=== PATIENT | female | born 1985 | race Caucasian/White ===

== ENCOUNTER 2020-08-31 08:21 | Emergency (ER) | payer OTHER, SELFPAY ==
[2020-08-31 08:22] VITALS: BP 131/81; PULSE 111; RESP 18; TEMP 36.7; O2SAT 99; BMI 43.2
--- NOTE | 2020-08-31 08:46 | ED_ITS ---
HPI - General Adult General Chief complaint: General Medical Stated complaint: vomiting,diarrhea Time Seen by Provider: 08/31/20 08:41 Source: patient Mode of arrival: ambulatory Limitations: no limitations History of Present Illness HPI narrative: 35-year-old female who is status post gastric band surgery 2011 at [facility], patient presented with episodes of nausea, vomiting, diarrhea, abdominal pain, patient stated ever since the surgery patient get episode of the above symptoms very frequently patient stated that today's symptoms similar to the previous episodes. Patient stated that symptoms started with since last night has been constant, nothing made symptoms worse or better, patient declined any recent travel, no recent use of antibiotics, no sick contact exposure. No history of eating that food. As mentioned above patient had several episodes of the above symptoms after having surgery in 2011. Related Data Allergies Allergy/AdvReac Type Severity Reaction Status Date / Time No Known Allergies Allergy Verified 08/31/20 08:26 [No Known Allergies*] pt states no food/medication Allergy Unknown Unknown Uncoded 08/31/20 08:26 a Review of Systems Review of Systems: All other systems are reviewed and are negative Constitutional: Reports as per HPI and Reports no additional constitutional complaints Eyes: Reports as per HPI and Reports no additional eye complaints Reports system reviewed and no additional complaints, except as documented Cardiovascular: Reports as per HPI and Reports no additional cardiovascular complaints Respiratory: Reports as per HPI and Reports no additional respiratory complaints Gastrointestinal: Reports as per HPI and Reports no additional gastrointestinal complaints Genitourinary: Reports no additional female genitourinary complaints Musculoskeletal: Reports no additional musculoskeletal complaints Skin/Breast: Reports system reviewed and no additional complaints, except as docu Psychiatric: Reports no additional psychiatric complaints Endocrine: Reports no additional endocrine complaints Hematologic/Lymphatic: Reports no additional hematologic/lymphatic complaints Allergic/Immunologic: Reports no additional allergic/immunologic complaints Reports system reviewed and no additional complaints, except as documented and Reports Abnormal speech present [facility] Past Medical History Surgical History Hx of laparoscopic gastric banding LAP-BAND surgery status Social History Social History Alcohol intake: never Smoking Status: Never smoker Use of substances other than those prescribed or required for medical reasons: No Advance Directives: Yes Advance Directives Information Provided: Yes Advance Directives on File: No Physical Exam Vital Signs: Vital Signs: Last Vital Signs Temp 98.1 F 08/31/20 08:22 Pulse 80 08/31/20 10:29 Resp 18 08/31/20 10:27 BP 122/71 08/31/20 10:29 Pulse Ox 99 08/31/20 08:22 Body Mass Index 43.2 Vital signs have been reviewed as appeared to be correct. Blood pressure normal. Tachycardia. Respiration rate normal. Temperature normal. Oxygen saturation normal. Appearance: Alert. Oriented X3. No acute distress. Head: Normal external exam. Normocephalic. Atraumatic. No Hinojosa signs noted. No raccoon eyes noted Eyes: PERRLA. EOMI. Conjunctiva and sclera normal. Eyelids normal. ENT: TM's Normal. Pharynx normal. Uvula midline. Moist mucous membranes. No trismus noted. No drooling noted. No muffled voice noted. Neck: Normal inspection. Neck supple. FROM. No adenopathy. Thyroid Normal. No meningeal signs. No neck mass noted. CVS: Normal heart rate and rhythm. Heart sound normal. No murmurs noted. Pulses normal throughout. Respiratory: No respiratory distress. Painless inspiration. Breath sounds normal. No wheezes/rales/rhonchi noted. Chest nontender. No accessory muscle usage noted or decreased air movement noted. Abdomen: Soft and nontender. Bowel sounds normal in all 4 quadrants. No distention noted. No organomegaly noted. No visible injury noted. Back: No CVA tenderness. Full range of motion noted. Skin: Skin warm and dry. Normal skin color. Normal skin turgor. No rashes/lesions/lacerations noted. Extremities: No lower extremity edema. Extremities exhibit normal range of motion. Extremities nontender. Neuro: Oriented X 3. No motor deficit. No sensory deficit. Reflexes normal. Course Course Course Narrative: Assessment and plan. 35-year-old femal status post gastric band surgery 8 years ago, patient gets epi sodes of abdominal pain, nausea, vomiting, diarrhea every now and then. Patient presented today with her typical symptoms and received IV hydration with Zofran patient now feels better able to tolerate p.o. intake. Repeat abdominal exam showed no tenderness, patient had mild leukocytosis. But abdominal exam has improved. Medical Decision Making Lab Data Lab results reviewed: Yes I reviewed the patient's lab results. Result diagrams: 08/31/20 08:57 08/31/20 08:57 Labs: Lab Results 08/31/20 08/31/20 08/31/20 Range/Units 08:57 08:57 08:57 WBC 12.5 H (4.8-10.8) X10*3/uL RBC 5.23 (4.20-5.50) X10*6/uL Hgb 14.1 (12.0-16.0) g/dl Hct 44.2 (37-47) % MCV 84.5 (80-98) fL MCH 27.0 (27.0-33.0) pg MCHC 31.9 (31.0-35.0) g/dl RDW 13.6 (11.0-16.0) % Plt Count 265 (160-400) X10*3/uL MPV 10.7 (9.4-12.3) fL Immature Gran % (Auto) 0.4 (0.0-0.4) % Neut % (Auto) 76.9 H (45-73) % Lymph % (Auto) 18.3 L (20-40) % [place] % (Auto) 3.4 (2-11) % Eos % (Auto) 0.8 (0-4) % Baso % (Auto) 0.2 (0-2) % Lymph # (Auto) 2.3 (1.2-4.9) X10*3/uL [place] # (Auto) 0.4 (0.1-1.2) X10*3/uL Eos # (Auto) 0.1 (0.0-0.4) X10*3/uL Baso # (Auto) 0.0 (0.0-0.2) X10*3/uL Abs Immat Gran (auto) 0.05 H (0.00-0.03) X10*3/uL Absolute Neuts (auto) 9.6 H (2.0-8.3) X10*3/uL Absolute Nucleated RBC 0.000 (0.0-0.012) X10*3/uL Nucleated RBC % (auto) 0.0 (0.0-0.2) /100WBC Sodium 137 (135-145) mmol/L Potassium 4.7 (3.3-5.1) mmol/L Chloride 106 (96-108) mmol/L Carbon Dioxide 18 L (22-29) mmol/L Anion Gap 18 (12-20) BUN 12 (9-16) mg/dL Creatinine 0.76 (0.5-1.4) mg/dL Estim Creat Clear Calc 131.4 Estimated GFR > 60 Random Glucose 199 H (60-115) mg/dL Calcium 9.0 (8.4-10.2) mg/dL Total Bilirubin 0.6 (0.0-1.0) mg/dL Direct Bilirubin 0.2 (0.0-0.5) mg/dL AST 12 (5-31) U/L ALT 15 (0-31) U/L Alkaline Phosphatase 82 (39-117) U/L Total Protein 7.8 (6.5-8.0) g/dL Albumin 4.2 (3.5-5.0) g/dL Lipase 34 (8-78) U/L Urine Color YELLOW Urine Appearance CLEAR Urine pH 5.5 (5.0-8.0) Ur Specific [place] >= 1.030 H (1.005-1.025) Urine Protein TRACE (NEG-TRACE) MG/DL Urine Glucose (UA) NEG (NEG) MG/DL Urine Ketones NEG (NEG) MG/DL Urine Blood NEG (NEG) Urine Nitrite NEG (NEG) Ur Leukocyte Esterase NEG (NEG) Urine Test (NEGATIVE) 08/31/20 Range/Units 08:57 WBC (4.8-10.8) X10*3/uL RBC (4.20-5.50) X10*6/uL Hgb (12.0-16.0) g/dl Hct (37-47) % MCV (80-98) fL MCH (27.0-33.0) pg MCHC (31.0-35.0) g/dl RDW (11.0-16.0) % Plt Count (160-400) X10*3/uL MPV (9.4-12.3) fL Immature Gran % (Auto) (0.0-0.4) % Neut % (Auto) (45-73) % Lymph % (Auto) (20-40) % [place] % (Auto) (2-11) % Eos % (Auto) (0-4) % Baso % (Auto) (0-2) % Lymph # (Auto) (1.2-4.9) X10*3/uL [place] # (Auto) (0.1-1.2) X10*3/uL Eos # (Auto) (0.0-0.4) X10*3/uL Baso # (Auto) (0.0-0.2) X10*3/uL Abs Immat Gran (auto) (0.00-0.03) X10*3/uL Absolute Neuts (auto) (2.0-8.3) X10*3/uL Absolute Nucleated RBC (0.0-0.012) X10*3/uL Nucleated RBC % (auto) (0.0-0.2) /100WBC Sodium (135-145) mmol/L Potassium (3.3-5.1) mmol/L Chloride (96-108) mmol/L Carbon Dioxide (22-29) mmol/L Anion Gap (12-20) BUN (9-16) mg/dL Creatinine (0.5-1.4) mg/dL Estim Creat Clear Calc Estimated GFR Random Glucose (60-115) mg/dL Calcium (8.4-10.2) mg/dL Total Bilirubin (0.0-1.0) mg/dL Direct Bilirubin (0.0-0.5) mg/dL AST (5-31) U/L ALT (0-31) U/L Alkaline Phosphatase (39-117) U/L Total Protein (6.5-8.0) g/dL Albumin (3.5-5.0) g/dL Lipase (8-78) U/L Urine Color Urine Appearance Urine pH (5.0-8.0) Ur Specific [place] (1.005-1.025) Urine Protein (NEG-TRACE) MG/DL Urine Glucose (UA) (NEG) MG/DL Urine Ketones (NEG) MG/DL Urine Blood (NEG) Urine Nitrite (NEG) Ur Leukocyte Esterase (NEG) Urine Test NEGATIVE (NEGATIVE) Discharge Plan Discharge Clinical Impression: Vomiting Abdominal pain Qualifiers: Abdominal location: generalized Qualified Code(s): R10.84 - Generalized abdominal pain Patient Disposition: Home, Self-Care Instructions: Abdominal Pain (ED) Referrals: Raquel Shukla NP [Primary Care Provider] - 2 days
[2020-08-31 09:02] LABS: MANUAL DIFF FLAG NO
[2020-08-31 09:06] LABS: Basophils Percent Auto 0.2 % (0-2); Eosinophils Absolute Auto 0.1 X10*3/uL (0.0-0.4); Eosinophils Percent Auto 0.8 % (0-4); Hematocrit 44.2 % (37-47); Hemoglobin 14.1 g/dl (12.0-16.0); Imm Gran Abs Auto 0.05 X10*3/uL (0.00-0.03); Imm Gran Pct Auto 0.4 % (0.0-0.4); Lymphocytes Absolute Auto 2.3 X10*3/uL (1.2-4.9); Lymphocytes Percent Auto 18.3 % (20-40); Mean Corpuscular HGB Conc 31.9 g/dl (31.0-35.0); Mean Corpuscular Volume 84.5 fL (80-98); Mean Platelet Volume 10.7 fL (9.4-12.3); Monocytes Absolute Auto 0.4 X10*3/uL (0.1-1.2); Monocytes Percent Auto 3.4 % (2-11); Neutrophils Absolute Auto 9.6 X10*3/uL (2.0-8.3); Neutrophils Percent Auto 76.9 % (45-73); Platelet Count 265 X10*3/uL (160-400); Red Blood Count 5.23 X10*6/uL (4.20-5.50); Red Cell Distribution Width 13.6 % (11.0-16.0); White Blood Count 12.5 X10*3/uL (4.8-10.8)
[2020-08-31] MEDS: 0.9 % Sodium Chloride 1,000 ML 999 ML IVCONT (09:07)
[2020-08-31] MEDS: ondansetron HCL 4 MG/2 ML VIAL IVPUSH (09:07)
[2020-08-31 09:15] LABS: Glucose Urine UA NEG (NEG); Leukocyte Esterase Urine NEG (NEG); Nitrite Urine NEG (NEG); PH 5.5 (5.0-8.0); Specific Gravity - Urine >= 1.030 (1.005-1.025); Urine Blood NEG (NEG); Urine Ketones NEG (NEG); Urine Protein TRACE MG/DL (NEG-TRACE)
[2020-08-31 09:16] LABS: Appearance Urine CLEAR; Color Urine YELLOW
[2020-08-31 09:17] LABS: UPreg QC Valid YES; Urine Pregnancy NEGATIVE (NEGATIVE)
[2020-08-31 09:35] LABS: Alanine Aminotransferase 15 U/L (0-31); Albumin Level 4.2 g/dL (3.5-5.0); Alkaline Phosphatase 82 U/L (39-117); Anion Gap 18 (12-20); Aspartate Amino Transferase 12 U/L (5-31); Bilirubin Direct 0.2 mg/dL (0.0-0.5); Bilirubin Total 0.6 mg/dL (0.0-1.0); Blood Urea Nitrogen 12 mg/dL (9-16); Carbon Dioxide 18 mmol/L (22-29); Chloride 106 mmol/L (96-108); Creatinine Clr Calc Pharmacy 131.4; Estimated Glomerular Filt Rate > 60; Glucose Random 199 mg/dL (60-115); Lipase 34 U/L (8-78); Potassium 4.7 mmol/L (3.3-5.1); Sodium 137 mmol/L (135-145); Total Protein 7.8 g/dL (6.5-8.0)
[2020-08-31 10:27] VITALS: BP 110/69; PULSE 68; RESP 18
[2020-08-31 10:28] VITALS: BP 110/69; PULSE 69
[2020-08-31 10:29] VITALS: BP 111/69; BP 122/71; PULSE 72; PULSE 80
--- NOTE | 2020-08-31 11:21 | PC.NURSE ---
pt sts feeling better att, vss. given po challenge, tolerating. wctm for dcc needs.
== END 2020-08-31 11:31 | disposition home or self-care (01) ==
PROVIDERS: Emergency Provider Emergency Medicine; PCP Nurse Practitioner
DX: R11.10 Vomiting, unspecified (principal); R10.84 Generalized abdominal pain; Z98.84 Bariatric surgery status
CPT/HCPCS: 36415; 80048; 80076; 81003; 81025; 83690; 85025; 96361; 96374; 99284; J2405

== ENCOUNTER → 2020-09-25 08:13 | Outpatient (BNVA) | payer OTHER, SELFPAY | PROVIDERS: PCP Nurse Practitioner; Visit Provider Physician Assistant ==

== ENCOUNTER → 2020-10-07 08:10 | Outpatient (BNVA) | payer OTHER, SELFPAY | PROVIDERS: PCP Nurse Practitioner; Visit Provider Surgery ==

== ENCOUNTER 2020-10-09 08:11 | Outpatient (REF) | payer OTHER, SELFPAY ==
--- NOTE | ~2020-10-09 | XR_ITS ---
EXAMINATION: XR CHEST CLINICAL INFORMATION: Morbid obesity COMPARISON: February 22, 2020 and July 12, 2017 TECHNIQUE: 2 views of the chest were obtained. FINDINGS: No significant abnormality is noted involving the heart, lungs, mediastinum, bony thorax or soft tissues. XR/XR chest 2V IMPRESSION: No acute disease.
--- NOTE | 2020-10-09 08:18 | ECG_ITS ---
Test Reason : MORBID OBESITY Blood Pressure : / mmHG Vent. Rate : 093 BPM Atrial Rate : 093 BPM P-R Int : 114 ms QRS Dur : 080 ms QT Int : 382 ms P-R-T Axes : 031 028 024 degrees QTc Int : 474 ms Normal sinus rhythm Normal ECG When compared to the previous EKG of No significant changes seen Referred By: Diego Coleman Electronically Signed By:Arcadio Villar
[2020-10-09 09:12] LABS: MANUAL DIFF FLAG NO
[2020-10-09 09:19] LABS: Basophils Percent Auto 0.5 % (0-2); Eosinophils Absolute Auto 0.1 X10*3/uL (0.0-0.4); Eosinophils Percent Auto 1.1 % (0-4); Hematocrit 39.5 % (37-47); Hemoglobin 12.6 g/dl (12.0-16.0); Imm Gran Abs Auto 0.03 X10*3/uL (0.00-0.03); Imm Gran Pct Auto 0.4 % (0.0-0.4); Lymphocytes Absolute Auto 2.9 X10*3/uL (1.2-4.9); Lymphocytes Percent Auto 36.5 % (20-40); Mean Corpuscular HGB Conc 31.9 g/dl (31.0-35.0); Mean Corpuscular Hemoglobin 26.8 pg (27.0-33.0); Mean Corpuscular Volume 83.9 fL (80-98); Monocytes Absolute Auto 0.3 X10*3/uL (0.1-1.2); Monocytes Percent Auto 3.8 % (2-11); Neutrophils Absolute Auto 4.5 X10*3/uL (2.0-8.3); Neutrophils Percent Auto 57.7 % (45-73); Platelet Count 219 X10*3/uL (160-400); Red Blood Count 4.71 X10*6/uL (4.20-5.50); Red Cell Distribution Width 13.9 % (11.0-16.0); White Blood Count 7.8 X10*3/uL (4.8-10.8)
[2020-10-09 09:40] LABS: Alanine Aminotransferase 22 U/L (0-31); Albumin Level 3.9 g/dL (3.5-5.0); Alkaline Phosphatase 77 U/L (39-117); Anion Gap 14 (12-20); Aspartate Amino Transferase 18 U/L (5-31); Bilirubin Total 0.6 mg/dL (0.0-1.0); Blood Urea Nitrogen 9 mg/dL (9-16); C Reactive Protein 1.02 mg/dL (< or = 0.50); Calcium 9.2 mg/dL (8.4-10.2); Carbon Dioxide 24 mmol/L (22-29); Chloride 104 mmol/L (96-108); Cholesterol 160 mg/dL; Estimated Glomerular Filt Rate > 60; Glucose Random 234 mg/dL (60-115); HDL Cholesterol 35 mg/dL; LDL Cholesterol Calculated 52 mg/dl; Potassium 4.5 mmol/L (3.3-5.1); Sodium 137 mmol/L (135-145); Total Protein 7.2 g/dL (6.5-8.0); Triglycerides 369 mg/dL
[2020-10-09 10:02] LABS: Ferritin 119 ng/mL (10-122); TSH reflex Free T4 1.83 uIU/mL (0.32-4.0); Vitamin D 25-OH Total 27.3 ng/mL (>30)
[2020-10-09 10:51] LABS: Estimated Average Glucose 177 mg/dL; Hemoglobin A1c % 7.8 %
[2020-10-09 11:33] LABS: Folate 4.2 ng/mL (> or = 4.0); Vitamin B12 468 pg/mL (200-900)
[2020-10-10 09:52] LABS: Insulin Level Total 16.7 uIU/mL
[2020-10-10 12:36] LABS: H Pylori Breath Test NOT DETECTED (NOT DETECTED)
[2020-10-13 00:32] LABS: Zinc 76 mcg/dL (60-130)
[2020-10-13 11:37] LABS: PTHI 60 pg/mL (14-64)
[2020-10-13 22:02] LABS: Vitamin A 56 mcg/dL (38-98)
[2020-10-15 07:26] LABS: Vitamin B1 7 nmol/L (8-30)
== END 2020-10-09 08:12 | disposition home or self-care (01) ==
LOC: HO.LAB 08:11
PROVIDERS: Physician Assistant; PCP Nurse Practitioner; Visit Provider Surgery
DX: Z01.812 Encounter for preprocedural laboratory examination (principal); E66.01 Morbid (severe) obesity due to excess calories; K21.9 Gastro-esophageal reflux disease without esophagitis; R11.2 Nausea with vomiting, unspecified
CPT/HCPCS: 36415; 71046; 80053; 80061; 82306; 82607; 82728; 82746; 83013; 83036; 83525; 83970; 84425; 84443; 84590; 84630; 85025; 86140; 93005; 99211

== ENCOUNTER → 2020-10-15 13:51 | Day surgery (SDC) | payer OTHER, SELFPAY ==
--- NOTE | 2020-10-14 20:57 | MHC.SHP ---
Pre-Procedural Eval Section A The patient is an INPATIENT: No The History & Physical has been completed within 30 days and I have reviewed it.: No Section B Chief Complaint: N/V Details of Present Illness: GERD Relevant Family History (Specify if Yes): No Relevant Social History: None Present Medications: see Short Stay Collaborative assessment Medical History: No relevant PMH History of Previous Operations: Relevant previous surgery/procedure and date(s) (Lap band) Allergies: Allergies Allergy/AdvReac Type Severity Reaction Status Date / Time pt states no food/medication Allergy Unknown Unknown Uncoded 10/07/20 13:39 a Review of Systems Sugical H&P ROS: Negative: Constitution, Cardiovascular, Respiratory, Neurological, Psychiatric, Hem-Onc, Allergic/Immunologic, Genitourinary, Musculoskeletal, Integumentary, Endocrine and Eyes/Ears/Nose/Throat and Yes, Specify: Gastrointestinal (GERD, vomiting) Exam Surgical H&P Exam: Normal: HEENT, Normal: Heart, Normal: Lungs, Normal: Extremities, Normal: Abdomen, Normal: Skin and Normal: Neurological Plan Diagnosis/Plan: Unchanged (EGD to asess cause of GERD and vomiting and rule out band slippage and erosion) I have reviewed the history and physical and performed a pertinent physical examination on my patient. No changes have occurred unless specified.
--- NOTE | 2020-10-15 10:08 | PM.OP ---
Brief Operative Note Date of Service: 10/15/20 Pre-op diagnosis: Nausea, vomiting and GERD, s/p lap band Post-op diagnosis: same Procedure: DATE: 11/05/2019 PREOPERATIVE DIAGNOSIS: GERD, s/p lap band POSTOPERATIVE DIAGNOSIS: Same as above. Esophagitis grade II PROCEDURE: Vuvwtuvi-kpmchl-ojkfjzdeosng with biopsies Surgeon: Mikie Coleman M.D.. Ph.D. Film Vault Supervisor: None Anesthesia: IV sedation Estimated blood loss: Minimal FINDINGS AND PROCEDURE: OPERATIVE INDICATIONS: The patient is a 35 year old female known to me who underwent a laparoscopic gastric band elsewhere. The patient had poor weight loss so far and has been complaining of GERD. Based on this information I recommended an upper endoscopy to evaluate the patient's symptoms. Risks and complications of the surgery were discussed with the patient in advance particularly the possibility of perforation or bleeding that may require surgical intervention. The patient understood the risks and was in agreement with the plan. PROCEDURE: After informed consent was obtained by the patient, the patient was transferred to the Operating Room and was placed in the supine position. After successful induction of IV sedation, a mouth block was inserted and the patient was placed in the left lateral decubitus position. An upper endoscopy was performed next, the oropharynx and esophagus appeared within the normal limits. There was no hiatal hernia. The z-line was irregular with tongues of gastric mucosa protruding to the esophagus in a 25-50% of circumference. The stomach was entered and it appeared to be of normal size. There was no band erosion, gastritis and no ulcer. The scope was advanced into the duodenum which appeared to be normal as well. Retroflexion was performed and again no band erosion was seen. At that point the duodenum and the stomach were decompressed and the scope was withdrawn from the patient's mouth. The patient was awaken and was transferred in stable condition to the Recovery Room for further care. I was present and performed all steps of the procedure. There were no residents to assist with this case. Please send a copy of the operative report to Dr. Pawel Logan. Mikie Coleman M.D., Ph.D. Surgeon: Diego Coleman MD Estimated blood loss (mL): 0 IV fluids (mL): 400 Urine output (mL): 0 (No Frias to record) Pathology: other (1) GEJ x2, distal esophagus x2, stomach x1) Condition: stable Disposition: PACU
[2020-10-15 14:03] VITALS: BMI 43.2
[2020-10-15 14:04] VITALS: BP 131/73; PULSE 91; RESP 18; TEMP 36.4; O2SAT 98
[2020-10-15 14:11] LABS: UPreg QC Valid YES
[2020-10-15 14:13] LABS: Glucose, Whole Blood 150 mg/dL (60-115)
[2020-10-15 14:13] LABS: Urine Pregnancy NEGATIVE (NEGATIVE)
--- NOTE | 2020-10-15 14:24 | PC.NURSE ---
PATIENT ADMITTED TO HAVING AN [facility]MON[facility] AT APPROX [address] ARRINGTON NOTIFIED AND SHE NOTIFIED THE SURGEON. PROCEDURE CANCELLED FOR TODAY,. PT TO RESCHEDULE. PACU AND OR DESK NOTIFIED.
[2020-10-15 14:26] LABS: COVID-19 Test Negative (Negative); IDNOW Serial# 9DD0AD1C
== END ==
PROVIDERS: Anesthesiology; PCP Nurse Practitioner; Visit Provider Surgery
DX: R11.2 Nausea with vomiting, unspecified (principal); Z53.8 Procedure and treatment not carried out for other reasons; K21.9 Gastro-esophageal reflux disease without esophagitis; E11.9 Type 2 diabetes mellitus without complications; Z79.84 Long term (current) use of oral hypoglycemic drugs; Z20.822 Contact with and (suspected) exposure to COVID-19; Z98.84 Bariatric surgery status
CPT/HCPCS: 36415; 81025; 82947; 87635

== ENCOUNTER 2020-10-22 08:08 | Day surgery (SDC) | payer OTHER, SELFPAY ==
--- NOTE | 2020-10-21 09:46 | HO.ANESPROP2 ---
Documented by User: Shreya Malini 10/21/20 09:48 HPI - Anesthesia Eval Consult details Narrative: 35yo F for EGD h/o lap band PMFSH Active Problems Active Problems: All Active Problems (Updated 10/16/20 @ 10:35 by Krissy Velazco [facility]) Adjustment disorder, unspecified (Acute) DJD (degenerative joint disease) (Acute) Back pain (Acute) Knee pain (Acute) Nausea and vomiting (Acute) GERD (gastroesophageal reflux disease) (Acute) Non-insulin dependent diabetes mellitus (Acute) Morbid obesity (Acute) Past Medical History Medical History (Updated 10/22/20 @ 10:56 by Bailey Álvarez) Back pain DJD (degenerative joint disease) GERD (gastroesophageal reflux disease) Knee pain Morbid obesity Nausea and vomiting Non-insulin dependent diabetes mellitus Family History Family History Mother No problems noted. Father No problems noted. Brother No problems noted. Sister No problems noted. Son No problems noted. Son No problems noted. Daughter No problems noted. Surgical History Surgical History Hx of laparoscopic gastric banding LAP-BAND surgery status Social History Social History Alcohol intake: never Smoking Status: Never smoker Use of substances other than those prescribed or required for medical reasons: No Are you DNR?: No Advance Directives: No Advance Directives Information Provided: Yes Meds Allergies Allergy/AdvReac Type Severity Reaction Status Date / Time pt states no food/medication Allergy Unknown Unknown Uncoded 10/22/20 08:56 a Home Medications Medication Instructions Recorded Confirmed Last Taken Type cholecalciferol (vitamin D3) 10 10 mcg PO DAILY 10/07/20 10/07/20 Unknown History mcg (400 unit) capsule etonogestrel 0.12 mg-ethinyl 1 vag ring VAGINAL Q4W 10/07/20 10/07/20 Unknown History estradiol 0.015 mg/24 hr vaginal ring liraglutide 0.6 mg/0.1 mL (18 mg/3 0.6 mg SUBCUT DAILY 10/07/20 10/07/20 Unknown History mL) subcutaneous pen injector metformin 500 mg tablet 500 mg PO DAILY 10/07/20 10/07/20 Unknown History omeprazole 40 mg capsule,delayed 40 mg PO DAILY 10/07/20 10/07/20 Unknown History release Exam Exam Date and Time: October 21, 2020 0946 Narrative Narrative: EKG 09/2020 Vent. Rate : 093 BPM Atrial Rate : 093 BPM P-R Int : 114 ms QRS Dur : 080 ms QT Int : 382 ms P-R-T Axes : 031 028 024 degrees QTc Int : 474 ms Normal sinus rhythm Normal ECG When compared to the previous EKG of No significant changes seen Assessment and Plan Assessment Anesthesia Assessment: Chart Reviewed Documented by User: Bailey Álvarez 10/22/20 10:58 PMFSH Past Medical History Medical History (Updated 10/22/20 @ 10:56 by Bailey Álvarez) Back pain DJD (degenerative joint disease) GERD (gastroesophageal reflux disease) Knee pain Morbid obesity Nausea and vomiting Non-insulin dependent diabetes mellitus Family History Family History Mother No problems noted. Father No problems noted. Brother No problems noted. Sister No problems noted. Son No problems noted. Son No problems noted. Daughter No problems noted. Family history of problems with anesthesia: No Surgical History Surgical History Hx of laparoscopic gastric banding LAP-BAND surgery status History of Problems with Anesthesia: No Social History Social History Alcohol intake: never Smoking Status: Never smoker Use of substances other than those prescribed or required for medical reasons: No Are you DNR?: No Advance Directives: No Advance Directives Information Provided: Yes Meds Allergies Allergy/AdvReac Type Severity Reaction Status Date / Time pt states no food/medication Allergy Unknown Unknown Uncoded 10/22/20 08:56 a Home Medications Medication Instructions Recorded Confirmed Last Taken Type cholecalciferol (vitamin D3) 10 10 mcg PO DAILY 10/07/20 10/07/20 Unknown History mcg (400 unit) capsule etonogestrel 0.12 mg-ethinyl 1 vag ring VAGINAL Q4W 10/07/20 10/07/20 Unknown History estradiol 0.015 mg/24 hr vaginal ring liraglutide 0.6 mg/0.1 mL (18 mg/3 0.6 mg SUBCUT DAILY 10/07/20 10/07/20 Unknown History mL) subcutaneous pen injector metformin 500 mg tablet 500 mg PO DAILY 10/07/20 10/07/20 Unknown History omeprazole 40 mg capsule,delayed 40 mg PO DAILY 10/07/20 10/07/20 Unknown History release Exam Height,Weight and Vital Signs: Vital Signs Temp Pulse Resp BP Pulse Ox 10/22/20 09:18 97.8 F 85 16 128/74 97 Pertinent Lab Results Pertinent Lab Results: Lab Results 10/22/20 10/22/20 10/22/20 Range/Units 08:49 08:50 09:35 POC Glucose 226 H (60-115) mg/dL Urine Test NEGATIVE (NEGATIVE) COVID-19 (JARED) Negative (Negative) COVID-19 Clin Com See Note Airway Mallampati Class: II TM Dist: >3cm Neck ROM: Full Heart: RRR Lungs: CTAB Assessment and Plan Assessment Anesthesia Assessment: Anesthesia Plan Discussed and Chart Reviewed Final Anesthetic Review NPO: Yes ASA Class: III Final Preanesthetic Review: No Changes in Pt Med Stat, Meds/Allgs Chart Reviewed, Consent Obtained/Reviewed and Anes Risks/Benef Reviewed Patient Risk: Intermediate Procedure Risk: Low Assessment/Block/Sedation in SS: Assess/Block/Sedation-SS Anesthetic Plan Anesthetic Plan: MAC: Disposition: Standard PACU
--- NOTE | 2020-10-21 20:39 | MHC.SHP ---
Pre-Procedural Eval Section A The patient is an INPATIENT: No The History & Physical has been completed within 30 days and I have reviewed it.: No Section B Chief Complaint: reflux disease Details of Present Illness: nausea and vomiting Relevant Family History (Specify if Yes): No Relevant Social History: None Present Medications: see Short Stay Collaborative assessment Medical History: No relevant PMH History of Previous Operations: Relevant previous surgery/procedure and date(s) (lap band) Allergies: Allergies Allergy/AdvReac Type Severity Reaction Status Date / Time pt states no food/medication Allergy Unknown Unknown Uncoded 10/07/20 13:39 a Review of Systems Sugical H&P ROS: Negative: Constitution, Cardiovascular, Respiratory, Neurological, Psychiatric, Hem-Onc, Allergic/Immunologic, Gastrointestinal, Genitourinary, Musculoskeletal, Integumentary, Endocrine and Eyes/Ears/Nose/Throat Exam Surgical H&P Exam: Normal: HEENT, Normal: Heart, Normal: Lungs, Normal: Extremities, Normal: Abdomen, Normal: Skin and Normal: Neurological Plan Diagnosis/Plan: Unchanged (EGD to assess cause of vomiting and rule out erosion and band slippage) I have reviewed the history and physical and performed a pertinent physical examination on my patient. No changes have occurred unless specified.
[2020-10-22 08:58] VITALS: BMI 43.2
[2020-10-22 09:18] VITALS: BP 128/74; PULSE 85; RESP 16; TEMP 36.6; O2SAT 97
[2020-10-22 09:19] LABS: UPreg QC Valid YES; Urine Pregnancy NEGATIVE (NEGATIVE)
[2020-10-22 09:32] LABS: COVID-19 Test Negative (Negative); IDNOW Serial# 9DD0AD1C
[2020-10-22] MEDS: Lactated Ringers 1,000 ML 80 ML IVCONT (09:37)
[2020-10-22 09:41] LABS: Glucose, Whole Blood 226 mg/dL (60-115)
--- NOTE | 2020-10-22 11:46 | PM.OP ---
Brief Operative Note Date of Service: 10/22/20 Pre-op diagnosis: GERD and vomiting Post-op diagnosis: same (esophagitis grade II, small diaphragmatic hernia) Procedure: DATE: 10/22/2020 PREOPERATIVE DIAGNOSIS: GERD, s/p lap band POSTOPERATIVE DIAGNOSIS: Same as above. Esophagitis grade II and a small diaphragmatic hernia PROCEDURE: Ciwcclow-ezkhqw-lafsymjfjuby with biopsies Surgeon: Mikie Coleman M.D.. Ph.D. Digital Media Intern: None Anesthesia: IV sedation Estimated blood loss: Minimal FINDINGS AND PROCEDURE: OPERATIVE INDICATIONS: The patient is a 35 year old female known to me who underwent a laparoscopic gastric band elsewhere. The patient had poor weight loss so far and has been complaining of GERD. Based on this information I recommended an upper endoscopy to evaluate the patient's symptoms. Risks and complications of the surgery were discussed with the patient in advance particularly the possibility of perforation or bleeding that may require surgical intervention. The patient understood the risks and was in agreement with the plan. PROCEDURE: After informed consent was obtained by the patient, the patient was transferred to the Operating Room and was placed in the supine position. After successful induction of IV sedation, a mouth block was inserted and the patient was placed in the left lateral decubitus position. An upper endoscopy was performed next, the oropharynx and esophagus appeared within the normal limits. There was a 2cm hiatal hernia. The z-line was irregular with tongues of gastric mucosa protruding to the esophagus in a 25-50% of circumference. Two biopsies were obtained from the z-line as well as distal esophagus. The stomach was entered and it appeared to be of normal size. There was no band erosion, or slippage as well as no gastritis and no ulcer. A biopsy was obtained from the proximal pouch as well as the antrum. No significant bleeding was noted from any of the biopsy sites. The scope was advanced into the duodenum which appeared to be normal as well. Retroflexion was performed and again no band erosion was seen. At that point the duodenum and the stomach were decompressed and the scope was withdrawn from the patient's mouth. The patient was awaken and was transferred in stable condition to the Recovery Room for further care. I was present and performed all steps of the procedure. There were no residents to assist with this case. Mikie Coleman M.D., Ph.D. Surgeon: Diego Coleman MD Anesthesia: MAC Was an Digital Media Intern used for this Procedure?: No Estimated blood loss (mL): 0 IV fluids (mL): 300 Urine output (mL): 0 (No Frias to record) Pathology: other ( 1) GE junction x2 2) Distal esophagus x2 3) Proximal stomach x1 4) Distal antrum x1) Condition: stable Disposition: PACU
[2020-10-22 11:49] VITALS: BP 124/70; PULSE 89; RESP 12; TEMP 36.6; O2SAT 99
[2020-10-22 12:01] VITALS: BP 105/66; PULSE 93; RESP 18; O2SAT 97
== END 2020-10-22 12:42 ==
LOC: HO.SSS 08:09
PROVIDERS: Nurse Practitioner; PCP Nurse Practitioner; Visit Provider Surgery
PROC: 0DJ08ZZ Inspection of Upper Intestinal Tract, Via Natural or Artificial Opening Endoscopic (ICD-10-PCS; CPT 43235; principal; 2020-10-22 10:30)
DX: K21.9 Gastro-esophageal reflux disease without esophagitis (principal); K20.80 Other esophagitis without bleeding; K44.9 Diaphragmatic hernia without obstruction or gangrene; Z98.84 Bariatric surgery status; E11.9 Type 2 diabetes mellitus without complications; Z79.84 Long term (current) use of oral hypoglycemic drugs; Z79.899 Other long term (current) drug therapy
CPT/HCPCS: 43239; 36415; 81025; 82947; 87635; 88305; 88342

== ENCOUNTER 2020-10-26 08:24 | Outpatient (REF) | payer OTHER, SELFPAY ==
--- NOTE | ~2020-10-26 | US_ITS ---
EXAMINATION: US COMPLETE ABDOMEN WITH LIVER ELASTOGRAPHY CLINICAL INFORMATION: Morbid severe obesity due to excess calories. COMPARISON: None. TECHNIQUE: Real-time imaging of the abdominal viscera. Noninvasive ultrasound liver fibrosis assessment is performed using [employer] ElastPQ point quantification shear wave elastography (pSWE) with a C5-2 MHz transducer. Multiple elastography samples are obtained. FINDINGS: PANCREAS: Normal. The visualized pancreatic head and body are normal in appearance. The remainder of the pancreas is obscured from visualization by the overlying bowel gas. ABDOMINAL AORTA: The proximal, middle, and distal aortic segments are normal in caliber. INFERIOR VENA CAVA: Visualized portions are normal. LIVER: The liver demonstrates normal size, contour and increased echogenicity. No focal lesion or intrahepatic biliary duct dilatation. The right lobe measures 18.1 cm in length. The left lobe measures 11.8 cm in length. Portal flow is hepatopedal. Shear wave liver elastography median stiffness is 1.61 m/s (reference: normal median stiffness is 1.3 m/s or less). IQR/median stiffness to assess sampling precision is 0.17 (reference: good quality data set is IQR/median stiffness of 0.15 or less). GALLBLADDER: Normal. The gallbladder is physiologically distended without evidence of stones, sludge, polyps, wall thickening or pericholecystic fluid. COMMON BILE DUCT: Normal in caliber measuring 0.4 cm in diameter. RIGHT KIDNEY: Normal. No hydronephrosis. No renal calculi or focal parenchymal lesions. The kidney measures 13.4 cm in maximum dimension. LEFT KIDNEY: Normal. No hydronephrosis. No renal calculi or focal parenchymal lesions. The kidney measures 12.9 cm in maximum dimension. SPLEEN: Borderline enlarged. The spleen measures 13.3 cm in maximum dimension. FREE FLUID: None. US/US abdomen comp w elastography IMPRESSION: 1. Hepatic steatosis without focal lesion. Mild splenomegaly. Rest of the abdominal ultrasound is unremarkable. 2. Liver elastography: Median stiffness 1.61 m/s. This corresponds to CACLD (ruled out). REFERENCE: Society of Radiologists in Ultrasound Liver Stiffness Thresholds (2019): LIVER STIFFNESS THRESHOLDS: *Liver Stiffness equal or less than 1.3 m/s: High probability of being normal. *Liver Stiffness less than 1.7 m/s: In the absence of other known clinical signs, rules out compensated advanced chronic liver disease. *Liver Stiffness 1.7-2.1 m/s: Suggestive of compensated advanced chronic liver disease but need further test for confirmation. *Liver Stiffness over 2.1 m/s: Rules in compensated advanced chronic liver disease. *Liver Stiffness over 2.4 m/s: Suggestive of clinically significant portal hypertension. QUALITY OF DATA SET: *IQR/Median value equal or less than 0.15 implies a quality data set. *IQR/Median value over 0.15 implies a poor quality data set. SIGNIFICANT CHANGE FROM PRIOR EXAM: Significant change if liver stiffness measurement is 10% or greater from prior exam. OTHER CONSIDERATIONS: The stage of liver fibrosis may be overestimated in the setting of acute hepatitis, liver inflammation, elevated liver function tests, hepatic vascular congestion, obstructive cholestasis, non-fasting state, and infiltrative diseases such as amyloidosis and lymphoma. In some patients with NAFLD, the liver stiffness thresholds for compensated advanced chronic liver disease may be lower. In causes other than viral hepatitis and NAFLD, liver stiffness thresholds are not well established.
--- NOTE | ~2020-10-26 | FL_ITS ---
EXAMINATION: XR GI SERIES CLINICAL INFORMATION: [id number] obesity due to excess calories. COMPARISON: None. TECHNIQUE: Routine upper GI air-contrast study was performed in upright and lying position. FINDINGS: Following oral administration of thick barium and effervescent granules, there is normal propagation of bolus from the oral cavity through the esophagus and into the stomach without any evidence of obstruction, narrowing or stricture. There is a gastric lap-band seen at the GE junction. This results in moderate distention and dilation of the distal esophagus with significant food residue and barium within. There is patency of the lumen at lap-band junction with contrast extending into the nondistended stomach. FLUOROSCOPY TIME: 2.7 minutes. DOSE AREA PRODUCT: 87.641 uGy-m2 (microgray-meter squared) FL/FL upper GI series IMPRESSION: The lap-band appears to be at the GE junction with significant distention and dilation of distal esophagus with moderate food residue and barium. There is patency of the GE junction and lap-band lumen through which contrast extends into a normal-size stomach.
== END 2020-10-26 08:25 | disposition home or self-care (01) ==
LOC: HO.US 08:24
PROVIDERS: PCP Nurse Practitioner; Visit Provider Surgery
DX: Z01.818 Encounter for other preprocedural examination (principal); E66.01 Morbid (severe) obesity due to excess calories; K21.9 Gastro-esophageal reflux disease without esophagitis; R11.2 Nausea with vomiting, unspecified
CPT/HCPCS: 74240; 76705; 76981

== ENCOUNTER → 2020-10-28 08:09 | Outpatient (BNVA) | payer OTHER, SELFPAY | PROVIDERS: PCP Nurse Practitioner; Visit Provider Surgery ==

== ENCOUNTER → 2020-10-29 08:13 | Outpatient (BNVA) | payer OTHER, SELFPAY | PROVIDERS: PCP Nurse Practitioner; Visit Provider Dietitian, Registered | DX: E66.01 Morbid (severe) obesity due to excess calories (principal); Z68.41 Body mass index [BMI] 40.0-44.9, adult | CPT/HCPCS: 97802 ==

== ENCOUNTER → 2020-11-24 08:02 | Outpatient (BNVA) | payer OTHER, SELFPAY | PROVIDERS: PCP Nurse Practitioner; Visit Provider Surgery ==

== ENCOUNTER 2020-11-26 03:33 | Emergency (ER) | payer OTHER, SELFPAY ==
--- NOTE | ~2020-11-26 | CT_ITS ---
EXAMINATION: CT ABDOMEN AND PELVIS WITH CONTRAST CLINICAL INFORMATION: Abdominal pain, nausea, diarrhea, low band COMPARISON: Ultrasound abdomen 10/26/2020. CT abdomen and pelvis 07/06/2017 TECHNIQUE: Multidetector volumetric images were obtained from the superior aspect of the liver through the pubic symphysis following administration 85 mL of Omnipaque 350 intravenous contrast. Sagittal and coronal reformatted images were obtained on the technologist's workstation. Oral contrast: No This CT examination was performed using dose optimization techniques as appropriate, variously including the following: *Automated exposure control *Adjustment of mA and/or kV according to patient size (this includes techniques or standardized protocols for targeted exams where dose is matched to indication/reason for exam; i.e. extremities or head) *Use of iterative reconstruction technique DLP: 960 mGy-cm FINDINGS: LUNG BASES: There is bilateral basilar atelectasis versus scarring. The heart size is normal. LIVER, GALLBLADDER, AND BILIARY TREE: The liver is normal in size, shape, and attenuation. No focal hepatic lesion or biliary ductal dilatation is present. The gallbladder is unremarkable with no evidence of radiopaque gallstones, gallbladder wall thickening, or obvious pericholecystic inflammatory changes. PANCREAS: Unremarkable. SPLEEN: Unremarkable. ADRENAL GLANDS: Unremarkable. KIDNEYS AND URETERS: The kidneys are normal in size, shape, and attenuation. No hydronephrosis, hydroureter, or calculi seen. No perinephric stranding. BLADDER: Unremarkable. GASTROINTESTINAL TRACT: There is scattered stool and gas seen throughout the colon without significant distention. The small bowel loops are normal caliber. Appendix is normal caliber. There is a gastric lap band in the fundus with recently ingested moderate food in the rest of the stomach. ABDOMINAL WALL: Small umbilical hernia containing fat is noted. LYMPH NODES: Normal. VASCULAR: Unremarkable. PELVIC VISCERA: Unremarkable. OSSEOUS STRUCTURES: No lytic or sclerotic process seen. CT/CT abdomen pelvis w con IMPRESSION: No acute intra-abdominal process seen. There is a lap band in the fundus of the stomach similar to previous study from 2018. Small umbilical hernia containing fat is stable.
[2020-11-26 04:03] VITALS: BP 128/75; PULSE 96; RESP 18; TEMP 36.8; O2SAT 98; BMI 42.0
[2020-11-26 06:10] LABS: Glucose Urine UA NEG (NEG); Leukocyte Esterase Urine NEG (NEG); Nitrite Urine NEG (NEG); Specific Gravity - Urine >= 1.030 (1.005-1.025); Urine Blood NEG (NEG); Urine Ketones 5 MG/DL (NEG); Urine Protein 1+ MG/DL (NEG-TRACE)
[2020-11-26 06:11] LABS: UPreg QC Valid YES; Urine Pregnancy NEGATIVE (NEGATIVE)
[2020-11-26 06:11] LABS: Appearance Urine CLEAR; Color Urine DARK YELLOW
[2020-11-26 06:18] LABS: Bacteria Urine 1+ /LPF; Mucus Urine 3+ /LPF; RBC Urine 0 /HPF (0); Squamous Epithelial Cell Urine 2+ /LPF
--- NOTE | 2020-11-26 06:49 | ED.ABDPAIN ---
HPI - Abdominal Pain General Chief Complaint: Abdominal Pain Stated Complaint: abdominal pain Time Seen by Provider: 11/26/20 06:35 Source: patient Mode of arrival: ambulatory Limitations: no limitations History of Present Illness HPI narrative: 35-year-old female who presents emergency department for evaluation of abdominal pain, nausea, vomiting and diarrhea. Patient states she has been sick for 2 days. She states she has vomited twice. She has had persistent nausea and loss of appetite. The patient states that she has had diarrhea, 2-3 episodes per hour for the last 2 days. She states that the diarrhea is watery, yellow with no blood. She also complains of epigastric pain. The pain is an intermittent pressure-like pain which is 10/10 at its worst. The patient has a history of a lap band surgery in 2011 done at [facility] but does follow-up with our bariatric surgeons. She states she gets these episodes 3-4 times per year and her last episode was approximately 2-3 months prior did not require hospitalization. She denies having a history of internal hernia as or bowel obstruction. The patient travel to [place] recently but has not traveled outside of the country. She denies any recent antibiotic use. She denied fever, chills, chest pain, shortness of breath, myalgias or arthralgias. Related Data Home Medications Medication Instructions Recorded Confirmed cholecalciferol (vitamin D3) 10 10 mcg PO DAILY 10/07/20 10/07/20 mcg (400 unit) capsule etonogestrel 0.12 mg-ethinyl 1 vag ring VAGINAL Q4W 10/07/20 10/07/20 estradiol 0.015 mg/24 hr vaginal ring liraglutide 0.6 mg/0.1 mL (18 mg/3 0.6 mg SUBCUT DAILY 10/07/20 10/07/20 mL) subcutaneous pen injector metformin 500 mg tablet 500 mg PO DAILY 10/07/20 10/07/20 omeprazole 40 mg capsule,delayed 40 mg PO DAILY 10/07/20 10/07/20 release Previous Rx's Medication Instructions Recorded ondansetron 4 mg PO Q6-8H PRN #14 tab 11/26/20 Allergies Allergy/AdvReac Type Severity Reaction Status Date / Time pt states no food/medication Allergy Unknown Unknown Uncoded 10/22/20 08:56 a Review of Systems Review of Systems Yes all other systems are reviewed and are negative Physical Exam Vital Signs: Vital Signs: Last Vital Signs Temp 98.2 F 11/26/20 04:03 Pulse 89 11/26/20 07:05 Resp 18 11/26/20 04:03 BP 127/67 11/26/20 07:05 Pulse Ox 97 11/26/20 07:05 Body Mass Index 42.0 Const: General: cooperative Nutritional Appearance: overweight Orientation/consciousness: oriented to person and oriented to place Limitations: no limitations HENMT: Head: Yes normal to inspection, Yes normocephalic and Yes atraumatic Ears: external ears normal General nose exam: Normal external nose present Face and sinus: Yes normal facial exam Mouth: Normal oral and palatal mucosa present Throat: Yes posterior oropharynx normal Eyes: Periorbital: periorbital findings normal Eyelids: Yes eyelids normal Conjunctivae: conjunctivae normal Sclerae: sclerae normal Corneas: corneas normal Pupils: Equal, round and reactive pupils present Direct Ophthalmoscopy: normal light reflex Neck: Neck: Yes full ROM, Yes no lymphadenopathy, Yes no meningeal signs, Yes trachea midline and Yes supple Chest: Chest palpation & inspection: normal inspection of the chest and normal palpation of entire chest wall Resp: Effort & Inspection: normal respiratory effort and able to speak in complete sentences Auscultation: clear to auscultation bilaterally Cardio: Rate: regular rate Rhythm: regular rhythm Heart sounds: S1 normal heart sound present, S2 normal heart sound present and no murmurs GI: Inspection: Yes normal to inspection Palpation (GI): Soft to palpation, Tenderness to palpation present (GI) in the epigastrum (Moderate), no guarding, not rigid and No hepatosplenomegaly present : General: Yes no CVA tenderness Back/Spine/Pelvis: Back: no CVA tenderness Cervical Spine: normal cervical lordosis Thoracic/Lumbar Spine: thoracic and lumbar spine normal to inspection Skin: Lesions: no lesions Rashes: no rashes Wounds: no wounds Neuro: General: oriented to person, oriented to place and no meningeal signs Cranial nerves: Yes CN's II-XII intact bilaterally and Yes Equal, round and reactive pupils present Cognition (Neuro): normal cognition Motor exam (neuro): 5/5 motor strength present throughout Extrem: General: Yes normal to inspection and Yes full ROM Psych: Appearance: well kempt Mental Status: mental status grossly normal Speech and movement: Normal speech and movement present Affect: normal affect Attitude: cooperative Thought process: Normal thought process present Thought content: Normal thought content present Course Course Course Narrative: 35-year-old female who presents emergency department for evaluation of nausea, vomiting, loss of appetite, vomiting and diarrhea and abdominal pain x2 days. Patient has a history of lap band surgery 2011. Patient states she had similar symptoms 3 to 4 times a month with her last episode being 2-3 months prior. Vital signs were normal. Physical examination revealed moderate midepigastric tenderness otherwise was unremarkable. I did order a CBC, CMP, lipase, lactate, PT/INR, PTT, C diff and stool culture. I will also obtain a CT scan of the abdomen pelvis with IV contrast to rule out bowel obstruction/internal hernia related to the patient's lap band surgery. Patient was ordered to get Toradol 30 mg IV and Zofran 4 mg IV for her pain and nausea. She is also treated with normal saline IV x1 L. 0932: The patient is feeling better but she states that her pain is still 5/10. She was ordered to get morphine 4 mg IV for pain. Laboratory evaluation did reveal a slightly high chloride of 109 and a low bicarb of 18. This is probably related to her vomiting and diarrhea. Her labs otherwise unremarkable. CT scan of the abdomen pelvis with IV contrast did not reveal a clear cause for pain. The patient will be discharged home with a prescription for Zofran ODT 4 mg every 8 hours as needed for nausea and vomiting. She was advised to continue to take Tylenol and ibuprofen and to follow-up with her PCP for re-evaluation. MDM - Abdominal Pain Lab Data Result diagrams: 11/26/20 07:17 11/26/20 07:16 Labs: Lab Results 11/26/20 11/26/20 11/26/20 Range/Units 06:01 06:02 07:16 WBC (4.8-10.8) X10*3/uL RBC (4.20-5.50) X10*6/uL Hgb (12.0-16.0) g/dl Hct (37-47) % MCV (80-98) fL MCH (27.0-33.0) pg MCHC (31.0-35.0) g/dl RDW (11.0-16.0) % Plt Count (160-400) X10*3/uL MPV (9.4-12.3) fL Immature Gran % (Auto) (0.0-0.4) % Neut % (Auto) (45-73) % Lymph % (Auto) (20-40) % Wheeler % (Auto) (2-11) % Eos % (Auto) (0-4) % Baso % (Auto) (0-2) % Lymph # (Auto) (1.2-4.9) X10*3/uL Wheeler # (Auto) (0.1-1.2) X10*3/uL Eos # (Auto) (0.0-0.4) X10*3/uL Baso # (Auto) (0.0-0.2) X10*3/uL Abs Immat Gran (auto) (0.00-0.03) X10*3/uL Absolute Neuts (auto) (2.0-8.3) X10*3/uL Absolute Nucleated RBC (0.0-0.012) X10*3/uL Nucleated RBC % (auto) (0.0-0.2) /100WBC PT 12.6 (10.8-13.0) SEC INR 1.1 (0.9-1.1) APTT 30.4 (24.1-38.0) SEC Sodium (135-145) mmol/L Potassium (3.3-5.1) mmol/L Chloride (96-108) mmol/L Carbon Dioxide (22-29) mmol/L Anion Gap (12-20) BUN (9-16) mg/dL Creatinine (0.5-1.4) mg/dL Estim Creat Clear Calc Estimated GFR Random Glucose (60-115) mg/dL Lactic Acid (0.5-2.0) mmol/L Calcium (8.4-10.2) mg/dL Total Bilirubin (0.0-1.0) mg/dL AST (5-31) U/L ALT (0-31) U/L Alkaline Phosphatase (39-117) U/L Total Protein (6.5-8.0) g/dL Albumin (3.5-5.0) g/dL Lipase (8-78) U/L Urine Color DARK YELLOW Urine Appearance CLEAR Urine pH 6.0 (5.0-8.0) Ur Specific [place] >= 1.030 H (1.005-1.025) Urine Protein 1+ H (NEG-TRACE) MG/DL Urine Glucose (UA) NEG (NEG) MG/DL Urine Ketones 5 (NEG) MG/DL Urine Blood NEG (NEG) Urine Nitrite NEG (NEG) Ur Leukocyte Esterase NEG (NEG) Urine RBC 0 (0) /HPF Urine WBC 1-4 (0-4) /HPF Ur Squamous Epith Cells 2+ /LPF Urine Bacteria 1+ /LPF Urine Mucus 3+ /LPF Urine Test NEGATIVE (NEGATIVE) 11/26/20 11/26/20 11/26/20 Range/Units 07:16 07:16 07:17 WBC 9.2 (4.8-10.8) X10*3/uL RBC 4.76 (4.20-5.50) X10*6/uL Hgb 12.9 (12.0-16.0) g/dl Hct 39.2 (37-47) % MCV 82.4 (80-98) fL MCH 27.1 (27.0-33.0) pg MCHC 32.9 (31.0-35.0) g/dl RDW 14.0 (11.0-16.0) % Plt Count 216 (160-400) X10*3/uL MPV 10.5 (9.4-12.3) fL Immature Gran % (Auto) 0.4 (0.0-0.4) % Neut % (Auto) 65.5 (45-73) % Lymph % (Auto) 28.6 (20-40) % Wheeler % (Auto) 3.5 (2-11) % Eos % (Auto) 1.9 (0-4) % Baso % (Auto) 0.1 (0-2) % Lymph # (Auto) 2.6 (1.2-4.9) X10*3/uL Wheeler # (Auto) 0.3 (0.1-1.2) X10*3/uL Eos # (Auto) 0.2 (0.0-0.4) X10*3/uL Baso # (Auto) 0.0 (0.0-0.2) X10*3/uL Abs Immat Gran (auto) 0.04 H (0.00-0.03) X10*3/uL Absolute Neuts (auto) 6.0 (2.0-8.3) X10*3/uL Absolute Nucleated RBC 0.000 (0.0-0.012) X10*3/uL Nucleated RBC % (auto) 0.0 (0.0-0.2) /100WBC PT (10.8-13.0) SEC INR (0.9-1.1) APTT (24.1-38.0) SEC Sodium 136 (135-145) mmol/L Potassium 3.8 (3.3-5.1) mmol/L Chloride 109 H (96-108) mmol/L Carbon Dioxide 18 L (22-29) mmol/L Anion Gap 13 (12-20) BUN 10 (9-16) mg/dL Creatinine 0.65 (0.5-1.4) mg/dL Estim Creat Clear Calc 151.3 Estimated GFR > 60 Random Glucose 142 H D (60-115) mg/dL Lactic Acid 1.8 (0.5-2.0) mmol/L Calcium 8.9 (8.4-10.2) mg/dL Total Bilirubin 0.3 (0.0-1.0) mg/dL AST 18 (5-31) U/L ALT 19 (0-31) U/L Alkaline Phosphatase 81 (39-117) U/L Total Protein 6.9 (6.5-8.0) g/dL Albumin 3.8 (3.5-5.0) g/dL Lipase 36 (8-78) U/L Urine Color Urine Appearance Urine pH (5.0-8.0) Ur Specific [place] (1.005-1.025) Urine Protein (NEG-TRACE) MG/DL Urine Glucose (UA) (NEG) MG/DL Urine Ketones (NEG) MG/DL Urine Blood (NEG) Urine Nitrite (NEG) Ur Leukocyte Esterase (NEG) Urine RBC (0) /HPF Urine WBC (0-4) /HPF Ur Squamous Epith Cells /LPF Urine Bacteria /LPF Urine Mucus /LPF Urine Test (NEGATIVE) Discharge Plan Discharge Clinical Impression: Abdominal pain, Vomiting, Diarrhea Patient Disposition: Home, Self-Care Instructions: Abdominal Pain (ED) Additional Instructions: Your blood work was consistent with being dehydrated from the vomiting and from the diarrhea. The CT scan of your abdomen pelvis with IV contrast did not reveal a clear cause of your abdominal pain which is reassuring. Take ibuprofen 200 mg pills, 3 pills every 6 hours as needed for pain. Take Tylenol (acetaminophen) 500 mg pills, 2 pills every 4 to 6 hours as needed for pain. Take Zofran ODT 4 mg pills, 1 pill dissolved in your mouth every 8 hours as needed for nausea and vomiting. Follow-up with your doctor in 2 days. Please return to the emergency department if your symptoms get worse or if you develop any symptoms that are concerning to you. Prescriptions: New ondansetron 4 mg tablet,disintegrating 4 mg PO Q6-8H PRN (Reason: nausea and vomiting) Qty: 14 RF: 0 No Action metformin 500 mg tablet 500 mg PO DAILY RF: 0 cholecalciferol (vitamin D3) 10 mcg (400 unit) capsule 10 mcg PO DAILY RF: 0 Victoza 2-Jacky 0.6 mg/0.1 mL (18 mg/3 mL) pen injector 0.6 mg subcut DAILY RF: 0 etonogestrel-ethinyl estradiol [NuvaRing] 0.12-0.015 mg/24 hr ring 1 vag ring vaginal Q4W RF: 0 omeprazole 40 mg capsule,delayed release(DR/EC) 40 mg PO DAILY RF: 0 PMFSH Past Medical History PMFSH Narrative: Social history: The patient works as medical case worker. She denies tobacco or drug use. She states she drinks alcohol occasionally. Medical History Back pain DJD (degenerative joint disease) GERD (gastroesophageal reflux disease) Knee pain Morbid obesity Nausea and vomiting Non-insulin dependent diabetes mellitus Surgical History Hx of laparoscopic gastric banding LAP-BAND surgery status Family History Family History Mother No problems noted. Father No problems noted. Brother No problems noted. Sister No problems noted. Son No problems noted. Son No problems noted. Daughter No problems noted. Social History Social History Alcohol intake: never Advance Directives: No Advance Directives Information Provided: No Patient : No
[2020-11-26 07:05] VITALS: BP 127/67; PULSE 89; O2SAT 97
[2020-11-26] MEDS: 0.9 % Sodium Chloride 1,000 ML 999 ML IV (07:22)
[2020-11-26 07:23] LABS: MANUAL DIFF FLAG NO
[2020-11-26 07:24] LABS: Basophils Percent Auto 0.1 % (0-2); Eosinophils Absolute Auto 0.2 X10*3/uL (0.0-0.4); Eosinophils Percent Auto 1.9 % (0-4); Hematocrit 39.2 % (37-47); Hemoglobin 12.9 g/dl (12.0-16.0); Imm Gran Abs Auto 0.04 X10*3/uL (0.00-0.03); Imm Gran Pct Auto 0.4 % (0.0-0.4); Lymphocytes Absolute Auto 2.6 X10*3/uL (1.2-4.9); Lymphocytes Percent Auto 28.6 % (20-40); Mean Corpuscular HGB Conc 32.9 g/dl (31.0-35.0); Mean Corpuscular Hemoglobin 27.1 pg (27.0-33.0); Mean Corpuscular Volume 82.4 fL (80-98); Mean Platelet Volume 10.5 fL (9.4-12.3); Monocytes Absolute Auto 0.3 X10*3/uL (0.1-1.2); Monocytes Percent Auto 3.5 % (2-11); Neutrophils Percent Auto 65.5 % (45-73); Platelet Count 216 X10*3/uL (160-400); Red Blood Count 4.76 X10*6/uL (4.20-5.50); White Blood Count 9.2 X10*3/uL (4.8-10.8)
[2020-11-26] MEDS: ondansetron HCL 4 MG/2 ML VIAL IVPUSH (07:24)
[2020-11-26] MEDS: Ketorolac Tromethamine 30 MG/ML VIAL IVPUSH (07:25)
[2020-11-26 07:40] LABS: INTERNATIONAL NORM RATIO 1.1 (0.9-1.1); Prothrombin Time 12.6 SEC (10.8-13.0)
[2020-11-26 07:43] LABS: Partial Thromboplastin Time 30.4 SEC (24.1-38.0)
[2020-11-26 07:47] LABS: Lactic Acid 1.8 mmol/L (0.5-2.0)
[2020-11-26 07:52] LABS: Alanine Aminotransferase 19 U/L (0-31); Albumin Level 3.8 g/dL (3.5-5.0); Alkaline Phosphatase 81 U/L (39-117); Anion Gap 13 (12-20); Aspartate Amino Transferase 18 U/L (5-31); Bilirubin Total 0.3 mg/dL (0.0-1.0); Blood Urea Nitrogen 10 mg/dL (9-16); Calcium 8.9 mg/dL (8.4-10.2); Carbon Dioxide 18 mmol/L (22-29); Chloride 109 mmol/L (96-108); Creatinine Clr Calc Pharmacy 151.3; Estimated Glomerular Filt Rate > 60; Glucose Random 142 mg/dL (60-115); Lipase 36 U/L (8-78); Potassium 3.8 mmol/L (3.3-5.1); Sodium 136 mmol/L (135-145); Total Protein 6.9 g/dL (6.5-8.0)
[2020-11-26] MEDS: iohexoL 350 MG/ML 100 ML INFUS..BTL 85 ML IV (08:09)
[2020-11-26 09:58] VITALS: BP 116/67; PULSE 85; O2SAT 97
[2020-11-26] MEDS: Morphine Sulfate 4 MG/ML CARTRIDGE IVPUSH (09:59)
== END 2020-11-26 10:22 | disposition home or self-care (01) ==
PROVIDERS: Emergency Provider Emergency Medicine Emergency Medical Services; PCP Nurse Practitioner
DX: R10.9 Unspecified abdominal pain (principal); R11.2 Nausea with vomiting, unspecified; R19.7 Diarrhea, unspecified; E11.9 Type 2 diabetes mellitus without complications; Z79.84 Long term (current) use of oral hypoglycemic drugs; Z98.84 Bariatric surgery status
CPT/HCPCS: 36415; 74177; 80053; 81001; 81025; 83605; 83690; 85025; 85610; 85730; 96361; 96374; 96375; 99284; J1885; J2270; J2405; Q9967

== ENCOUNTER 2021-03-10 14:19 | Outpatient (REF) | payer OTHER, SELFPAY | END 2021-03-10 14:20 | disposition home or self-care (01) | LOC: HO.LAB 14:19 | PROVIDERS: PCP Nurse Practitioner; Visit Provider Internal Medicine | DX: Z20.822 Contact with and (suspected) exposure to COVID-19 (principal) | CPT/HCPCS: C9803; U0003; U0005 ==

== ENCOUNTER → 2021-05-10 09:24 | Outpatient (BNVA) | payer OTHER, SELFPAY | PROVIDERS: PCP Nurse Practitioner; Visit Provider Physician Assistant Surgical ==

== ENCOUNTER → 2021-06-09 08:06 | Outpatient (BNVA) | payer OTHER, SELFPAY | PROVIDERS: PCP Nurse Practitioner; Visit Provider Physician Assistant Surgical ==

== ENCOUNTER → 2021-07-05 08:01 | Outpatient (BNVA) | payer OTHER, SELFPAY | PROVIDERS: PCP Nurse Practitioner; Visit Provider Physician Assistant Surgical ==

== ENCOUNTER → 2021-08-20 08:07 | Outpatient (BNVA) | payer OTHER, SELFPAY | PROVIDERS: PCP Nurse Practitioner; Visit Provider Physician Assistant Surgical ==

== ENCOUNTER 2024-09-03 16:00 | Outpatient (REF) | payer OTHER, SELFPAY ==
--- NOTE | ~2024-09-03 | XR_ITS ---
EXAMINATION: XR CHEST 2 VIEWS HISTORY: Chest pain COMPARISON: Comparison is made with the prior examination dated 10/09/2020. FINDINGS: PA and lateral views of the chest are submitted. The lungs are expanded and clear. There is no pleural effusion, pneumothorax, or pulmonary vascular congestion. The heart is normal in size. The bones are intact. XR/XR chest 2V IMPRESSION: No acute cardiopulmonary abnormality. Electronically signed by: Albaro Sanz MD 09/04/2024 08:59 AM EDT
--- OUTSIDE RECORDS SUMMARY | 2024-09-03 18:43 | XMS_ITS | Continuity of Care Document ---
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 [facility] 07/18/2024 13:12:02 OPV 0 completed Richard Vivar GEAR ROLLER null, [facility] 07/18/2024 13:12:02 OPV 5 completed Richard Madalyncooper YASMINE null, [facility] 07/18/2024 13:12:02 OPV 6 completed Richard Vivar GEAR ROLLER null, [facility] 07/18/2024 13:12:02 OPV 4 completed Richard Madalyncooper YASMINE null, [facility] 07/18/2024 13:12:02 COVID-19, mRNA, LNP-S, bivalent, PF, 50 mcg/0.5 mL or 25mcg/0.25 mL dose 2 completed Richard Madalyncooper YASMINE null, [facility] 07/18/2024 13:12:16 Influenza, split virus, quadrivalent, PF 3 completed Richard Vivar YASMINE null, [facility] 07/18/2024 13:12:16 Influenza, split virus, quadrivalent, PF 2 completed Richard Cb YASMINE null, [facility] 07/18/2024 13:12:16 Past Encounters Encounter ID Performer Location Encounter Start Date Encounter Closed Date Diagnosis/Indication Diagnosis SNOMED-CT Code Diagnosis ICD10 Code Diagnosis Note [id number] PANCHITO Alejandre Tamera [facility] [address] [place] [address] 08/23/2024 09:48:24 08/23/2024 11:18:19 Excess skin of abdominal wall 080177473 L98.7 Scheduled for abdominopl asty with Dr. Concepción Baxter on 09/17/2024. Preprocedu ral examination done 4662197014 75033 Z01.818 Planned abdominopl asty as above.PMH significan t for T2DM, HLD.EKG: nsr, nl ekg.Patiizabella t reports relatively good functional capacity and is considered at low risk for cardiovasc ular complicati on from this moderate risk procedure per revised cardiac risk index.I see no contraindi cation for proceeding with planned surgery at this time.Reque sted preoperati ve labs and CXR were ordered and are pending. Type 2 jolie betes mellitus without complication 138735335 E11.9 Last HbA1C completed 07/18/24: 5.3.Curren t med regimen: Trulicity 3mg/0.5mL weekly, no s/e or concerns, continue.R epeat HbA1c today at surgeon's request. Hyperlipidemia 24169939 E78.5 Lipids nl on last check on 07/18/24 - total 143, LDL 89, HLD 37, trigs 83.No medication s.Continue well balanced diet, regular physical activity. HIV screening 310557369 Z11.4 Health Concerns Section Related Observation LastModified by Organization Detai ls LastModified Time None Recorded Concern Status LastModified by Organization Details LastModified Time None Recorded Payers Encounter Date Sequence Insurance Name Policy Number Policy Britt Covered Member ID Britt Member ID Guarantor Name 08/23/2024 1 [facility] [place] Dayana Tsang [id number] Dayana Tsang Notes Date Note Type Note Provider Name and Address Organization Details Recorded Time 08/23/2024 text/html Patient presents for preop evaluation, scheduled for abdominoplasty with Dr. Concepción Baxter on 09/17/2024.Prior surgeries without any anesthesia reaction, abnormal bleeding or other complications No family history of anesthesia reactions.Endorses lightheadedness, however states fluid intake much lower after having gastric sleeve, improves once better hydrated later in day.Feeling well overall, no chest pain, shortness of breath, palpitations or edema at rest or with exertion Lynn Valencia, [facility], [place], [address], [facility] - [employer] [facility] 08/23/2024 11:18:01 OBGyn Episode No OBEpisode recorded.
--- OUTSIDE RECORDS SUMMARY | 2024-09-03 18:43 | XMS_ITS | Clinical Summary ---
Author Organization [address] [place] [address] [place] [phone] Phone Care Team Providers Care Registration Clerk Name Role Phone Jolly Mckinney PANCHITO Primary Care Provider [phone] Allergies No known active allergies Medications cholecalciferol (VITAMIN D-3) 50 mcg (2,000 unit) tablet Take 1 Tablet by mouth daily. 02/10/2023 Active ONDANSETRON ORAL Take 4 mg by mouth every 8 hours as needed (nausea). 06/02/2022 Active WHEAT DEXTRIN ORAL Take 4 g by mouth daily. 06/02/2022 Active NAPROXEN ORAL Take by mouth. Active cyclobenzaprine (FLEXERIL) 10 mg tablet Take 10 mg by mouth 3 times daily as needed. Active IBUPROFEN ORAL Take by mouth. Active sitagliptin phosphate (JANUVIA ORAL) Take by mouth. Active etonogestrel/eth inyl estradiol (NUVARING VAGL) Place vaginally. Active MULTIVITAMIN ORAL Take by mouth. Active NUTRITIONAL SUPPLEMENTS ORAL Take by mouth. Active ondansetron HCl (ZOFRAN ORAL) Take by mouth. Active metFORMIN (GLUCOPHAGE) 500 mg tablet Take 500 mg by mouth 2 times daily (with meals). Active topiramate (TOPAMAX) 100 mg tabletIndication s:Class 1 obesity due to excess calories with body mass index (BMI) of 32.0 to 32.9 in adult, unspecified whether serious comorbidity present Take 1 tablet (100 mg total) by mouth at bedtime. 30 each 2 06/18/2024 09/17/19 25 Active phentermine 30 mg capsuleIndicatio ns:Class 1 obesity due to excess calories with body mass index (BMI) of 32.0 to 32.9 in adult, unspecified whether serious comorbidity present Take 1 capsule (30 mg total) by mouth 1 (one) time each day before breakfast. Max Daily Amount: 30 mg 30 each 2 06/18/2024 09/17/19 25 Active Active Problems Problem Noted Date Diagnosed Date Class 2 obesity due to exces s calories with body mass index (BMI) of 35.0 to 35.9 in adult 12/06/2021 Encounters Date Type Department Care Team Description 06/18/2024 11:45 AM EST Office Visit Bariatric Surgery - [address] [place] [address] Venessa Montes MD Class 1 obesity due to excess calories with body mass index (BMI) of 32.0 to 32.9 in adult, unspecified whether serious comorbidity present (Primary Dx); Abdominal panniculus, symptomatic from Last 3 Months Surgical History Surgery Date Site/Laterality Comments LAPAROSCOPIC GASTRIC BANDING PROCEDURE: LAP ADJUSTABLE GASTRIC BAND Medical History Medical History Date Comments Type 2 diabetes mellitus (CMS/HCC) DX:Type 2 diabetes mellitus (HCC) Arthritis DX:Arthritis Hypertension DX:Hypertension Hyperlipidemia DX:Hyperlipidemi a Social History Tobacco Use Types Packs/Day Years Used Date Smoking Tobacco: Never Smokeless Tobacco: Never Alcohol Use Standard Drinks/Week Comments Yes 0 (1 standard drink = 0.6 oz pur e alcohol) Comments Unknown Sex and Gender Information Value Date Recorded Sex Assigned at Not on file Legal Sex Female 8:34 PM EST Gender Identity Not on file Sexual Orientation Not on file Obstetrics History Last Filed Vital Signs Vital Sign Reading Time Taken Comments Blood Pressure 101/64 06/18/2024 11:39 AM EST Pulse 88 06/18/2024 11:39 AM EST Temperature 36.5 ??C (97.7 ??F) 06/18/2024 11:[address] Respiratory Rate - - Oxygen Saturation - - Inhaled Oxygen Concentration - - Weight 88.9 kg (196 lb) 06/18/2024 11:39 AM EST Height 165.1 cm (5' 5 ) 06/18/2024 11:39 AM EST Body Mass Index 32.62 06/18/2024 11:39 AM EST Plan of Treatment Upcoming Encounters Date Type Department Care Team (Late st Contact Info) Description 09/09/2024 8:30 AM EDT Consult Plastic & Reconstructive Surgery - [place] [address] [place] [address] Mik Mendoza PA [address] [place] [address] 12/17/2024 11:00 AM EDT Office Visit Bariatric Surgery - [place] [address] [place] [phone] Venessa Montes MD [address] [place] [address] Health Maintenance Due Date Last Done Comments Breast Cancer Screening 1984 Hepatitis B Vaccines (1 of 3 - 19+ 3-dose series) 02/28/2003 Cervical Cancer Screening: P ap Smear 02/28/2005 Depression Screening 05/29/2022 HIV Screening 05/29/2022 Hepatitis C Screening 05/29/2022 Social Influencers of Health Screening 05/29/2022 Cholesterol Screening (Lipid Panel) 08/30/2026 08/30/2021 DTaP,Tdap,and Td Vaccines (2 - Td or Tdap) 11/15/2028 11/15/2018 MMR Vaccines Aged Out 09/05/2023 No longer eligi ble based on patient's age to complete this topic COVID-19 Vaccine Completed 03/01/2024, 05/06/2021 Influenza Vaccine Completed 03/01/2024, 05/06/2021 HIB Vaccines Aged Out No longer eligi ble based on patient's age to complete this topic HPV Vaccines Aged Out No longer eligi ble based on patient's age to complete this topic Hepatitis A Vaccines Aged Out No long er eligible based on patient's age to complete this topic IPV Vaccines Aged Out No longer eligi ble based on patient's age to complete this topic Meningococcal ACWY Vaccine Aged Out N o longer eligible based on patient's age to complete this topic Meningococcal B Vacine Aged Out No lo nger eligible based on patient's age to complete this topic Pneumococcal Vaccine: Pediatrics (0 to 5 Years) and At-Risk Patients (6 to 64 Years) Aged Out No longer eligible b ased on patient's age to complete this topic RSV Immunization Patients Under 20 months Aged Out No longer eligible b ased on patient's age to complete this topic Varicella Vaccines Aged Out No longer eligible based on patient's age to complete this topic Procedures Procedure Name Priority Date/Time Associated Diagnosis Comments LIPID PANEL Routine 08/30/2021 from Last 3 Months or Most Recently Relevant to Health Maintenance Results * (ABNORMAL) Lipid panel (08/30/2021) LDL/HDL Ratio 4 0 - 4 Triglycerides 277(A) 0 - 150 mg/dL Cholesterol 157 0 - 200 mg/dL HDL 40 >=40 mg/dL LDL Cholesterol 62 0 - 100 mg/dL Blood Venous blood specimen / Unknown Historical Provider LAB BLOOD ORDERABLES Taina l Result from Last 3 Months or Most Recently Relevant to Health Maintenance [place] [address] [place] [address] Care Teams Registration Clerk Relationship Specialty Start Date End Date Jolly Mckinney FNP [address] [facility] [address] [place] [address] PCP - General Family Medicine 06/21/24
--- OUTSIDE RECORDS SUMMARY | 2024-09-03 18:43 | XMS_ITS | Data Portability ---
Author Organization [place] - [employer] [facility], [facility] Cable Former Address [address] [place] [address] Care Team Providers Care Custom Bookbinder Name Role Phone JOLLY MCKINNEY Primary Care Provider Assessment Encounter Date Assessment Date Assessment LastModified by Organization Details LastModified Time 08/23/2024 08/23/2024 Pt made aware we cannot guarantee insurance coverage for requested preoperative screening tests. Consents to testing being ordered/complet ed. A total of 30 minutes was spent in chart review, medical decision-making , counseling, documentation, and coordination of care. Not available 08/23/2024 11:17:48 Plan of Treatment Reminders Order Date Submit Date Provider Last Modified By Organization Details Last Modified Time Details Appointments Follow Up 30 2024 03:30P M Dean Gibbs MD Not available Not available Not available Lab CBC w/ auto diff 2024 [address] [facility] [address], [address], 08/24/2024 04:39:11 CMP, serum or plasma 2024 [address] [facility] [address], [address], 08/24/2024 04:39:11 PT/PTT, plasma 2024 [address] [facility] [address], [address], 08/24/2024 04:39:09 beta-HCG, quantitat tanya, serum or plasma 2024 025 [facility] [address] [place] [address], [address], 08/24/2024 04:39:12 HbA1c (hemoglob in A1c), blood 2024 025 [facility], [address] [place] [address], [address], 08/24/2024 04:39:13 HIV 1+2 Ab + HIV1 p24 Ag, quantitat tanya immunoass ay, serum 2024 025 [facility], [address] [place] [address], [address], 08/24/2024 04:39:10 CMP, serum or plasma 2024 025 [facility], [address] [place] [address], [address], 07/19/2024 04:58:25 CBC 2024 025 [facility], [address] [place] [address], [address], 07/19/2024 04:58:26 TSH, serum or plasma 2024 025 [facility] [address], [address], 07/19/2024 04:58:26 lipid panel, serum 2024 025 [facility] [address], [address], 07/19/2024 04:58:25 HbA1c (hemoglob in A1c), blood 2024 025 [facility] [address], [address], 07/19/2024 04:58:27 hemoglobi n A1C, fingersti ck 2022 023 [facility] In-Office Order, Internal Use Only DO Not Attach Compendium DO Not Attach Compendium, Do Not Delete/merge, [id number] 03/03/2023 14:25:52 microalbu min/creat inine, ratio, urine 2022 023 [facility], [address] [place], [address], 06/09/2023 11:54:42 CMP, serum or plasma 2022 023 [facility], [address] [place], [address], 06/09/2023 11:56:07 lipid panel, serum 2022 023 [facility], [address] [place], [address], 06/09/2023 11:56:35 Referral gynecolog ist referral - pt looking for non-hormo nal contracep tion method--c onsiderin g IUD. taking topiramat e which interfere s with hormonal method currently using. 2023 024 [email or web address] [facility], [address] [place], [address], 05/23/2024 15:54:37 Procedures None recorded. Surgeries None recorded. Imaging XR, chest 2024 025 [facility] (Imaging), [address] [place] [address], [address], 08/23/2024 11:24:45 Medication Orders cyclobenz aprine 10 mg tablet 2024 025 [facility]/Ph[facility]acy #[id number], [address] [place], [address], 07/18/2024 14:24:14 Victoza 3-Jacky 0.6 mg/0.1 mL (18 mg/3 mL) subcutane ous pen injector 2023 024 [facility]/Pharmacy #[id number], [address] [place], [address], 12/20/2023 08:19:24 Patient TargetsNo targets recorded. Patient Instructions Encounter Date Encounter Id Patient Instructions Last Modified By Organization Details Last Modified Time 03/01/2023 [id number] 5 min prior to visit 20 min with visit discussing pt's conditions, counseling and education. Answered all pt's questions 5 min charting gisell Not available 03/01/2023 14:42:22 Reason for Referral [employer] Referral for Lo ng-term current use of hormonal contraceptive pt looking for non-hormonal contraception method--considering IUD. taking topiramate which interferes with hormonal method currently using. Referring Physician: Jolly Mckinney, Family Medicine, Encounter Date: 11/17/2023 Results Created Date Observation Date Name Description Value Unit Range Abnormal Flag Note LastModifiedBy Organization Detail LastModifiedTime 03/01/2003/01/2023 hemog lobin A1C, finge rstic k hemoglobin A1C 6% 4.4-6. 3 normal Not Available In-Office Order Internal Use Only DO Not Attach Compendium DO Not Attach Compendium, Do Not Delete/merge, [id number] 03/01/2023 14:12:00 07/18/19 25 07/19/2024 LIPID PANEL , STAND MARYJANE cholesterol, total 143 mg/dL <200 normal Not Available [facility] [address], [address], 07/19/2024 05:16:31 07/18/19 25 07/19/2024 LIPID PANEL , STAND MARYJANE HDL cholesterol 37 mg/dL > or = 50 low Not Available [facility] [address], [address], 07/19/2024 05:16:31 07/18/19 25 07/19/2024 LIPID PANEL , STAND MARYJANE triglyceride s 83 mg/dL <150 normal Not Available [facility] [address], [address], 07/19/2024 05:16:31 07/18/19 25 07/19/2024 LIPID PANEL , STAND MARYJANE LDL-choleste rol 89 mg/dL _(silvestre c) normal Refer ence range : <100 Juwan able range <100 mg/dL for prima ry preve ntion ; <70 mg/dL for patie nts with CHD or diabe tic patie nts with > or = 2 CHD risk facto rs. LDL-C is now calcu lated using the Rashmi n-Hop kins calcu lisset n, which is a valid ated novel metho d provi ding rodolfo r accur acy than the Fried faraz equat ion in the estim ation of LDL-C . Rashmi arrieta SS et al. NINA. 2013; 310(1 9): 2061- 206 (http ://ed ucati on.Sentient. PickPark/f aq/FA Q164) Not Available [facility] [place] [facility] [address], [address], 07/19/2024 05:16:31 07/18/19 25 07/19/2024 LIPID PANEL , STAND MARYJANE chol/HDLC ratio 3.9 (calc ) <5.0 normal Not Available [facility] [place] [facility] [address], [place], [address], 07/19/2024 05:16:31 07/18/19 25 07/19/2024 LIPID PANEL , STAND MARYJANE non HDL cholesterol 106 mg/dL _(silvestre c) <130 normal For patie nts with diabe lexy plus 1 major ASCVD risk facto r, treat ing to a non-H DL-C goal of <100 mg/dL (LDL- C of <70 mg/dL ) is consi dered a thera peho c optio n. Not Available [facility] [place] [facility] [address], [place], [address], 07/19/2024 05:16:31 07/18/1907/19/2024 COMPR EHENS TANYA METAB OLIC PANEL glucose 81 mg/dL 65-99 normal Fasti ng refer ence inter jason Not Available [facility] [place] [facility] [address] [place], [address], 07/19/2024 05:16:32 07/18/19 25 07/19/2024 COMPR EHENS TANYA METAB OLIC PANEL urea nitrogen (BUN) 13 mg/dL 7-25 normal Not Available [facility] [address], [place], [address], 07/19/2024 05:16:32 07/18/19 25 07/19/2024 COMPR EHENS TANYA METAB OLIC PANEL creatinine 0.71 mg/dL 0.50-0 .99 normal Not Available [facility] [address], [place], [address], 07/19/2024 05:16:32 07/18/19 25 07/19/2024 COMPR EHENS TANYA METAB OLIC PANEL eGFR 110 mL/mi n/1.7 3m2 > or = 60 normal Not Available [facility] [address], [place], [address], 07/19/2024 05:16:32 07/18/1907/19/2024 COMPR EHENS TANYA METAB OLIC PANEL BUN/creatini ne ratio SEE NOTE: (calc ) 6-22 Not Repor myles: BUN and Creat inine are withi n refer ence range . Not Available [facility] [address], [place], [address], 07/19/2024 05:16:32 07/18/19 25 07/19/2024 COMPR EHENS TANYA METAB OLIC PANEL sodium 139 mmol/ L 135-14 6 normal Not Available [facility] [address], [place], [address], 07/19/2024 05:16:32 07/18/19 25 07/19/2024 COMPR EHENS TANYA METAB OLIC PANEL potassium 4.0 mmol/ L 3.5-5. 3 normal Not Available [facility] [address], [place], [address], 07/19/2024 05:16:32 07/18/19 25 07/19/2024 COMPR EHENS TANYA METAB OLIC PANEL chloride 107 mmol/ L 98-110 normal Not Available [facility] [address], [place], [address], 07/19/2024 05:16:32 07/18/19 25 07/19/2024 COMPR EHENS TANYA METAB OLIC PANEL carbon dioxide 24 mmol/ L 20-32 normal Not Available [facility] [address], [place], [address], 07/19/2024 05:16:32 07/18/19 25 07/19/2024 COMPR EHENS TANYA METAB OLIC PANEL calcium 9.3 mg/dL 8.6-10 .2 normal Not Available [facility] [address], [place], [address], 07/19/2024 05:16:32 07/18/19 25 07/19/2024 COMPR EHENS TANYA METAB OLIC PANEL protein, total 7.6 g/dL 6.1-8. 1 normal Not Available [facility] [address], [place], [address], 07/19/2024 05:16:32 07/18/19 25 07/19/2024 COMPR EHENS TANYA METAB OLIC PANEL albumin 4.7 g/dL 3.6-5. 1 normal Not Available [facility] [address], [place], [address], 07/19/2024 05:16:32 07/18/19 25 07/19/2024 COMPR EHENS TANYA METAB OLIC PANEL globulin 2.9 g/dL_ (calc ) 1.9-3. 7 normal Not Available [facility] [address], [place], [address], 07/19/2024 05:16:32 07/18/19 25 07/19/2024 COMPR EHENS TANYA METAB OLIC PANEL albumin/glob ulin ratio 1.6 (calc ) 1.0-2. 5 normal Not Available [facility] [address], [place], [address], 07/19/2024 05:16:32 07/18/19 25 07/19/2024 COMPR EHENS TANYA METAB OLIC PANEL bilirubin, total 0.4 mg/dL 0.2-1. 2 normal Not Available [facility] [address], [place], [address], 07/19/2024 05:16:32 07/18/19 25 07/19/2024 COMPR EHENS TANYA METAB OLIC PANEL alkaline phosphatase 74 U/L 31-125 normal Not Available [facility] [address], [place], [address], 07/19/2024 05:16:32 07/18/19 25 07/19/2024 COMPR EHENS TANYA METAB OLIC PANEL AST 9 U/L 10-30 low Not Available [facility] [address], [place], [address], 07/19/2024 05:16:32 07/18/19 25 07/19/2024 COMPR EHENS TANYA METAB OLIC PANEL ALT 9 U/L 6-29 normal Not Available [facility] [address], [place], [address], 07/19/2024 05:16:32 07/18/19 25 07/19/2024 CBC (H/H, RBC, INDIC ES, WBC, PLT) white blood cell count 7.4 thous and/u L 3.8-10 .8 normal Not Available [facility] [address], [place], [address], 07/19/2024 04:58:26 07/18/19 25 07/19/2024 CBC (H/H, RBC, INDIC ES, WBC, PLT) red blood cell count 4.99 schuyler on/uL 3.80-5 .10 normal Not Available [facility] [address], [place], [address], 07/19/2024 04:58:26 07/18/1907/19/2024 CBC (H/H, RBC, INDIC ES, WBC, PLT) hemoglobin 13.1 g/dL 11.7-1 5.5 normal Not Available [facility] [address], [place], [address], 07/19/2024 04:58:26 07/18/19 25 07/19/2024 CBC (H/H, RBC, INDIC ES, WBC, PLT) hematocrit 40.4 % 35.0-4 5.0 normal Not Available [facility] [address], [place], [address], 07/19/2024 04:58:26 07/18/1907/19/2024 CBC (H/H, RBC, INDIC ES, WBC, PLT) MCV 81.0 fL 80.0-1 00.0 normal Not Available [facility] [address], [place], [address], 07/19/2024 04:58:26 07/18/1907/19/2024 CBC (H/H, RBC, INDIC ES, WBC, PLT) MCH 26.3 pg 27.0-3 3.0 low Not Available [facility] [address], [place], [address], 07/19/2024 04:58:26 07/18/1907/19/2024 CBC (H/H, RBC, INDIC ES, WBC, PLT) MCHC 32.4 g/dL 32.0-3 6.0 normal For adult s, a sligh t decre ase in the calcu lated MCHC value (in the range of 30 to 32 g/dL) is most likel y not clini laurie signi [place] t; chaim er, it shoul d be inter prete d with cauti on in corre lat n with other red cell michelle eters and the patie nt's clini silvestre condi tion. Not Available [facility] [address] [place], [place], [address], 07/19/2024 04:58:26 07/18/1907/19/2024 CBC (H/H, RBC, INDIC ES, WBC, PLT) RDW 14.2 % 11.0-1 5.0 normal Not Available [facility] [place] [facility] [address], [place], [address], 07/19/2024 04:58:26 07/18/1907/19/2024 CBC (H/H, RBC, INDIC ES, WBC, PLT) platelet count 259 thous and/u L 140-40 0 normal Not Available [facility] [place] [facility] [address], [place], [address], 07/19/2024 04:58:26 07/18/1907/19/2024 CBC (H/H, RBC, INDIC ES, WBC, PLT) MPV 11.6 fL 7.5-12 .5 normal Not Available [facility] [address], [place], [address], 07/19/2024 04:58:26 07/18/1907/19/2024 TSH W/REF CHIARA TO FT4 TSH w/reflex to FT4 1.14 mIU/L normal Refer ence Range > or = 20 Years 0.40- 4.50 Pregn saritha Range s First trime ster 0.26- 2.66 Secon d trime ster 0.55- 2.73 Third trime ster 0.43- 2.91 Not Available [facility] [place] [facility] [address], [place], [address], 07/19/2024 06:02:37 07/18/1907/19/2024 HEMOG LOBIN A1C hemoglobin A1C 5.3 %_of_ total _HGB <5.7 normal For the purpo se of screxiomara mejia for the prese nce of diabe lexy: <5.7% Consi stent with the absen ce of diabe lexy 5.7-6 .4% Consi stent with incre ased risk for diabe lexy (pred iabet es) > or =6.5% Consi stent with diabe lexy This assay resul t is consi stent with a decre ased risk of diabe lexy. Curre ntly, no conse nsus exist s claire kulkarni use of hemog lobin A1c for diagn osis of diabe lexy in child max. Accor ding to Ameri can Diabe lexy Assoc iatio n (ADA) guide lines , hemog lobin A1c <7.0% repre sents optim al contr ol in non-p regna nt diabe tic patie nts. Diffe rent metri cs may apply to speci fic patie nt popul ation s. Stand ards of Medic al Care in Diabe lexy(A DA). Not Available [facility] [place] [facility] [address], [place], [address], 07/19/2024 05:16:33 08/24/19 25 08/24/2024 PROTH ROMBI N W/INR + PARTI AL THROM BOPLA STIN TIMES partial thromboplast in time, activated 26 sec 23-32 normal This test has not been valid ated for monit oring unfra ction ated hepar in thera py. For testi ng that is valid ated for this type of thera py, umair solano refer to the Hepar in Anti- Xa assay (test code 61941 ). For addit ional infor umair dockery refer to http: //[place] stDia gnost ics.c om/fa q/FAQ 159 (This link is being provi ded for infor dominique nal/e ducat ional purpo ses only. ) Not Available [facility] [place] [facility] [address], [address], 08/24/2024 04:39:09 08/24/1908/24/2024 PROTH ROMBI N W/INR + PARTI AL THROM BOPLA STIN TIMES INR 1.0 normal Refer ence Range 0.9-1 .1 Moder ate-i ntens ity Warfa rin Thera py 2.0-3 .0 Highe r-int ensit y Warfa rin Thera py 3.0-4 .0 Not Available [facility] [place] [facility] [address], [place], [address], 08/24/2024 04:39:09 08/24/19 25 08/24/2024 PROTH ROMBI N W/INR + PARTI AL THROM BOPLA STIN TIMES PT 10.7 sec 9.0-11 .5 normal Not Available [facility] [place] [facility] [address], [address], 08/24/2024 04:39:09 08/24/19 25 08/24/2024 HIV 1/2 ANTIG EN/AN TIBOD Y,FOU RTH GENER ATION W/RFL HIV Ag/Ab, 4TH gen NON-RE ACTIVE non-re active normal HIV-1 antig en and HIV-1 /HIV- 2 antib odies were not detec myles. There is no labor atory evide nce of HIV infec tion. UMAIR Solano NOTE: This infor dominique arrieta has been discl osed to you from recor ds whose confi denti ality may be prote cted by state law. If your state requi res such prote ction , then the state law prohi bits you from geri george any furth er discl osure of the infor matio n witho ut the speci fic writt en conse nt of the perso n to whom it perta ins, or as other hammond permi tted by law. A gener al autho rizat ion for the relea se of medic al or other infor matio n is NOT suffi cient for this purpo se. For addit ional infor matio n pleas e refer to http: //[facility] cat n.que stdia gnost ics.c om/fa q/FAQ 106 (This link is being provi ded for infor matio nal/ educa elieser l purpo ses only. ) The perfo rmanc e of this assay has not been clini laurie valid ated in patie nts less than 2 years old. Not Available [facility] [place] [facility] [address], [address], 08/24/2024 10:50:51 08/24/19 25 08/24/2024 COMPR EHENS TANYA METAB OLIC PANEL glucose 65 mg/dL 65-139 normal Non-f astin g refer ence inter jason Not Available [facility] [address], [address], 08/24/2024 04:57:22 08/24/19 25 08/24/2024 COMPR EHENS TANYA METAB OLIC PANEL urea nitrogen (BUN) 10 mg/dL 7-25 normal Not Available [facility] [place] [facility] [address], [address], 08/24/2024 04:57:22 08/24/19 25 08/24/2024 COMPR EHENS TANYA METAB OLIC PANEL creatinine 0.72 mg/dL 0.50-0 .99 normal Not Available [facility] [address], [address], 08/24/2024 04:57:22 08/24/19 25 08/24/2024 COMPR EHENS TANYA METAB OLIC PANEL eGFR 108 mL/mi n/1.7 3m2 > or = 60 normal Not Available [facility] [address], [place], [address], 08/24/2024 04:57:22 08/24/19 25 08/24/2024 COMPR EHENS TANYA METAB OLIC PANEL BUN/creatini ne ratio SEE NOTE: (calc ) 6-22 Not Repor myles: BUN and Creat inine are withi n refer ence range . Not Available [facility] [address], [place], [address], 08/24/2024 04:57:22 08/24/19 25 08/24/2024 COMPR EHENS TANYA METAB OLIC PANEL sodium 141 mmol/ L 135-14 6 normal Not Available [facility] [address], [place], [address], 08/24/2024 04:57:22 08/24/19 25 08/24/2024 COMPR EHENS TANYA METAB OLIC PANEL potassium 4.4 mmol/ L 3.5-5. 3 normal Not Available [facility] [address], [place], [address], 08/24/2024 04:57:22 08/24/19 25 08/24/2024 COMPR EHENS TANYA METAB OLIC PANEL chloride 109 mmol/ L 98-110 normal Not Available [facility] [address], [place], [address], 08/24/2024 04:57:22 08/24/19 25 08/24/2024 COMPR EHENS TANYA METAB OLIC PANEL carbon dioxide 25 mmol/ L 20-32 normal Not Available [facility] [address], [place], [address], 08/24/2024 04:57:22 08/24/19 25 08/24/2024 COMPR EHENS TANYA METAB OLIC PANEL calcium 9.2 mg/dL 8.6-10 .2 normal Not Available [facility] [place] [facility] [address], [place], [address], 08/24/2024 04:57:22 08/24/19 25 08/24/2024 COMPR EHENS TANYA METAB OLIC PANEL protein, total 7.4 g/dL 6.1-8. 1 normal Not Available [facility] [place] [facility] [address], [place], [address], 08/24/2024 04:57:22 08/24/19 25 08/24/2024 COMPR EHENS TANYA METAB OLIC PANEL albumin 4.5 g/dL 3.6-5. 1 normal Not Available [facility] [place] [facility] [address], [place], [address], 08/24/2024 04:57:22 08/24/19 25 08/24/2024 COMPR EHENS TANYA METAB OLIC PANEL globulin 2.9 g/dL_ (calc ) 1.9-3. 7 normal Not Available [facility] [place] [facility] [address], [place], [address], 08/24/2024 04:57:22 08/24/19 25 08/24/2024 COMPR EHENS TANYA METAB OLIC PANEL albumin/glob ulin ratio 1.6 (calc ) 1.0-2. 5 normal Not Available [facility] [address], [place], [address], 08/24/2024 04:57:22 08/24/19 25 08/24/2024 COMPR EHENS TANYA METAB OLIC PANEL bilirubin, total 0.4 mg/dL 0.2-1. 2 normal Not Available [facility] [place] [facility] [address], [place], [address], 08/24/2024 04:57:22 08/24/19 25 08/24/2024 COMPR EHENS TANYA METAB OLIC PANEL alkaline phosphatase 69 U/L 31-125 normal Not Available [facility] [place] [facility] [address], [place], [address], 08/24/2024 04:57:22 08/24/19 25 08/24/2024 COMPR EHENS TANYA METAB OLIC PANEL AST 10 U/L 10-30 normal Not Available [facility] [address], [place], [address], 08/24/2024 04:57:22 08/24/19 25 08/24/2024 COMPR EHENS TANYA METAB OLIC PANEL ALT 9 U/L 6-29 normal Not Available [facility] [address], [place], [address], 08/24/2024 04:57:22 08/24/19 25 08/24/2024 CBC (INCL UDES DIFF/ PLT) white blood cell count 7.4 thous and/u L 3.8-10 .8 normal Not Available [facility] [address], [place], [address], 08/24/2024 04:39:11 08/24/19 25 08/24/2024 CBC (INCL UDES DIFF/ PLT) red blood cell count 5.19 schuyler on/uL 3.80-5 .10 high Not Available [facility] [address], [place], [address], 08/24/2024 04:39:11 08/24/19 25 08/24/2024 CBC (INCL UDES DIFF/ PLT) hemoglobin 13.8 g/dL 11.7-1 5.5 normal Not Available [facility] [place] [facility] [address], [place], [address], 08/24/2024 04:39:11 08/24/19 25 08/24/2024 CBC (INCL UDES DIFF/ PLT) hematocrit 43.2 % 35.0-4 5.0 normal Not Available [facility] [place] [facility] [address], [place], [address], 08/24/2024 04:39:11 08/24/19 25 08/24/2024 CBC (INCL UDES DIFF/ PLT) MCV 83.2 fL 80.0-1 00.0 normal Not Available [facility] [place] [facility] [address], [place], [address], 08/24/2024 04:39:11 08/24/19 25 08/24/2024 CBC (INCL UDES DIFF/ PLT) MCH 26.6 pg 27.0-3 3.0 low Not Available [facility] [place] [facility] [address], [place], [address], 08/24/2024 04:39:11 08/24/19 25 08/24/2024 CBC (INCL UDES DIFF/ PLT) MCHC 31.9 g/dL 32.0-3 6.0 low For adult s, a sligh t decre ase in the calcu lated MCHC value (in the range of 30 to 32 g/dL) is most likel y not clini laurie signi [place] t; chaim er, it shoul d be inter prete d with cauti on in [facility] n with other red cell michelle eters and the patie nt's clini silvestre condi tion. Not Available [facility] [place] [facility] [address], [place], [address], 08/24/2024 04:39:11 08/24/19 25 08/24/2024 CBC (INCL UDES DIFF/ PLT) RDW 14.4 % 11.0-1 5.0 normal Not Available [facility] [place] [facility] [address], [place], [address], 08/24/2024 04:39:11 08/24/19 25 08/24/2024 CBC (INCL UDES DIFF/ PLT) platelet count 260 thous and/u L 140-40 0 normal Not Available [facility] [place] [facility] [address], [place], [address], 08/24/2024 04:39:11 08/24/19 25 08/24/2024 CBC (INCL UDES DIFF/ PLT) MPV 13.4 fL 7.5-12 .5 high Not Available [facility] [address], [place], [address], 08/24/2024 04:39:11 08/24/19 25 08/24/2024 CBC (INCL UDES DIFF/ PLT) absolute neutrophils 3559 cells /uL 1500-7 800 normal Not Available [facility]- [address], [place], [address], 08/24/2024 04:39:11 08/24/19 25 08/24/2024 CBC (INCL UDES DIFF/ PLT) absolute lymphocytes 3337 cells /uL 850-39 00 normal Not Available [facility] [place] [facility] [address], [place], [address], 08/24/2024 04:39:11 08/24/19 25 08/24/2024 CBC (INCL UDES DIFF/ PLT) absolute monocytes 370 cells /uL 200-95 0 normal Not Available [facility] [place] [facility] [address], [place], [address], 08/24/2024 04:39:11 08/24/19 25 08/24/2024 CBC (INCL UDES DIFF/ PLT) absolute eosinophils 81 cells /uL 15-500 normal Not Available [facility] [place] [facility] [address], [place], [address], 08/24/2024 04:39:11 08/24/19 25 08/24/2024 CBC (INCL UDES DIFF/ PLT) absolute basophils 52 cells /uL 0-200 normal Not Available [facility] [place] [facility] [address], [place], [address], 08/24/2024 04:39:11 08/24/19 25 08/24/2024 CBC (INCL UDES DIFF/ PLT) neutrophils 48.1 % normal Not Available [facility] [address], [place], [address], 08/24/2024 04:39:11 08/24/19 25 08/24/2024 CBC (INCL UDES DIFF/ PLT) lymphocytes 45.1 % normal Not Available [facility] [address], [place], [address], 08/24/2024 04:39:11 08/24/19 25 08/24/2024 CBC (INCL UDES DIFF/ PLT) monocytes 5.0 % normal Not Available [facility] [address], [place], [address], 08/24/2024 04:39:11 08/24/19 25 08/24/2024 CBC (INCL UDES DIFF/ PLT) eosinophils 1.1 % normal Not Available [facility] [address], [place], [address], 08/24/2024 04:39:11 08/24/19 25 08/24/2024 CBC (INCL UDES DIFF/ PLT) basophils 0.7 % normal Not Available [facility] [address] [place], [address], 08/24/2024 04:39:11 08/24/19 25 08/28/2024 HCG, TOTAL , QN HCG, total, qn <5 mIU/m L normal Refer ence Range Nonpr egnan t or preme nopau david <5 Postm enopa usal <10 Value s from diffe rent assay metho ds may vary. The use of this assay to monit or or to diagn ose patie nts with cance r or any condi tion unrel ated to pregn saritha has not been clear ed or appro trice by the FDA or the [facility] actur er of the assay . Not Available [facility] [place] [facility] [address], [place], [address], 08/28/2024 20:56:27 08/24/19 25 08/24/2024 HEMOG LOBIN A1C hemoglobin A1C 5.3 %_of_ total _HGB <5.7 normal For the purpo se of markel mejia for the prese nce of diabe lexy: <5.7% Consi stent with the absen ce of diabe lexy 5.7-6 .4% Consi stent with incre ased risk for diabe lexy (pred iabet es) > or =6.5% Consi stent with diabe lexy This assay resul t is consi stent with a decre ased risk of diabe lexy. Curre ntly, no conse nsus exist s claire kulkarni use of hemog lobin A1c for diagn osis of diabe lexy in child max. Accor ding to Ameri can Diabe lexy Assoc iatio n (ADA) guide lines , hemog lobin A1c <7.0% repre sents optim al contr ol in non-p regna nt diabe tic patie nts. Diffe rent metri cs may apply to speci fic patie nt popul ation s. Stand ards of Medic al Care in Diabe lexy(A DA). Not Available [facility] [place] [facility] [address], [place], [address], 08/24/2024 05:40:44 08/24/19 25 08/23/2024 elect jameson toneygr am No observ ation record ed. [email or web address] Not Available 2024 18:48:41 Result Notes None recorded. Problems Name Problem SNOMED Code Status Onset Date Resolution Date Notes Provider Name and Address Organization Details Recorded Time Hyperlip idemia 69058767 Active PANCHITO Felton [address] [place] [address], [address], [facility] [employer] 6 15:04:17 Obesity 981464619 Active PANCHITO Felton [address] [place] [address], [address], [facility] [employer] 6 15:04:17 Type 2 diabetes mellitus without complica tion 149101469 Active PANCHITO Felton [address] [place] [address], [address], [facility] [employer] 6 15:04:17 Disorder of stomach 96646325 Completed 03/20/2019 Tita Cordova MD [address] [place] [address], [address], [facility] [employer] 9 09:23:58 Diarrhea 95507391 Completed 03/20/2019 Tita Cordova MD [address] [place] [address], [address], [facility] [employer] 9 09:24:06 Vitamin D deficien cy 59336274 Active PANCHITO Felton [address] [place] [address], [address], [facility] [employer] 6 15:04:17 Alcoholi c fatty liver 71333461 Completed 03/20/2019 Tita Cordova MD [address] [place] [address], [address], [facility] [employer] Includes [facility] [employer] 9 09:23:42 Vaccinat ion failure 75610710 Completed 03/20/2019 Tita Cordova MD [address] [place] [address], [address], [facility] [employer] 9 09:23:50 Backache 221916004 Active PANCHITO Felton [address] [place] [address], [address], [facility] [employer] 6 15:04:17 Backache with radiatin g pain 606812771 Completed 03/20/2019 Tita Cordova MD [address] [place] [address], [address], [facility] [employer] 9 09:23:16 Distenti on of vein 496441573 Completed 03/20/2019 Tita Cordova MD [address] [place] [address], [address], [facility] [employer] 9 09:23:54 Type 2 diabetes mellitus 65503356 Completed 07/29/2015 PANCHITO Felton [address] [place] [address], [address], [facility] [employer] 6 15:04:17 Abdomina l pain 71243610 Completed 03/20/2019 Tita Cordova MD [address] [place] [address], [address], [facility] [employer] 9 09:23:35 Anemia 827378286 Active PANCHITO Felton [address] [place] [address], [address], [facility] [employer] 6 15:04:17 Depressi ve disorder 71979058 Completed 03/20/2019 Tita Cordova MD [address] [place] [address], [address], [facility] [employer] 9 09:27:42 Long-ter m current use of hormonal contrace ptive 02632181018 4105 Active 2023 JOLLY MCKINNEY DNP [address] [place] [address], [address], [facility] [employer] Includes [facility] [employer] 4 11:27:30 Lumbar radiculo dodie 309032241 Active 2024 JOLLY MCKINNEY DNP [address] [place] [address], [address], [facility] [employer] 16:15:31 Problem Notes None recorded. Procedures Surgical History Date Name Laterality Status Provider Name and Address Organization Details Recorded Time Other completed Nellie Lubin LPN [facility] [employer] [facility] 10/24/2014 12:15:55 Imaging Results Imaging Date Name Status LastModified by Organization Details LastModified Time 08/23/2024 electrocardiogram completed [id number] Informa tion not available 08/26/2024 18:48:41 Procedure Notes None recorded. Medical Equipment None Reported. Allergies No known drug allergies Medications Name Sig Start Date Stop Date Status Note LastModified by Organization Details LastModified Time januvia 100 mg tabs active Not Available Not Available Not Available vitamin d 71162 unit caps active Not Available Not Available [...] and Address Organization Details Last Updated DateTime 3 740601. 98 g 39.6 kg/m2 165.1 cm 84 /min 97 % 97 % 118 mm[Hg] 80 mm[Hg] Ginna Kathy [address] [place], [address], [facility] [employer] [facility] 3 14:08:53 Date Recorded Body weight Heart rate Oxygen saturation Oxygen saturation in Arterial blood by Pulse oximetry Systolic blood pressure Diastolic blood pressure Provider Name and Address Organization Details Last Updated DateTime 5 83934.1 g 86 /min 97 % 97 % 110 mm[Hg] 70 mm[Hg] Richard Vivar [facility] [employer] [facility] 5 13:19:12 Date Recorded Body weight Body mass index (BMI) Body height Heart rate Oxygen saturation Oxygen saturation in Arterial blood by Pulse oximetry Systolic blood pressure Diastolic blood pressure Provider Name and Address Organization Details Last Updated DateTime 5 37681.0 3 g 28.9 kg/m2 167.64 cm 88 /min 99 % 99 % 100 mm[Hg] 60 mm[Hg] Lyssa Nguyen [facility] [employer] [facility] 5 10:16:35 Social History Question Answer Notes LastModified by Organizat ion Details LastModified Time Tobacco Smoking Status Never Smoker Nellie Lubin LPN [facility], [facility] [employer] [facility] 10/24/2014 12:28:03 Do You Have An [...] Of Mental Health Or Substance Abuse? Yes [email or web address] Information not available 12/31/2014 Have You Ever Experienced Any Trauma Such As A Sexual Assault, Domestic Violence, Combat Experience, A Sudden Of A Loved One, Or Anything That Made You Excessively Afraid? Yes - Past Safe At Home Information not available 10/24/2014 Language Burundian [employer] Information not available 10/24/2014 Country Of Origin [facility] Information not available 10/24/2014 Dietary Regular [...] N Gout N Cardiac History, Heart Murmur, CT N Eye or Vision Problems Y Gynecologic problems N Hernia N Thyroid Problems N GI Problems Y Developmental or Behavioral Disorders N Blood Pressure High or Low N Breast Problem N Skin Problems N Food or Environmental Allergies N Diabetes Y Muscle, Joint, or Bone Problems Y Bladder,Kidney Problems or Recurrent UTI 's N Bleeding Disorder N Arthritis N Infertility N Cancer (of any kind) N Prostate issues, ED or Sexual Problem N Insomnia N Cholesterol High or Low Y Defects or Inherited Diseases N Chronic Pain N Stroke N Headache N [...] Time influenza, unspecified formulation 2 completed Nellie Salice, CLOTH TESTER QUALITY null, [facility] 10/24/2014 12:28:03 Tdap 4 completed Nellie Salice, CLOTH TESTER QUALITY null, [facility] 10/24/2014 12:28:03 influenza, unspecified formulation 5 completed Layla De Leon null, [facility] 03/24/2015 11:50:53 OPV 4 completed Richard Vivar [employer]EL[employer] null, [facility] 07/18/2024 13:12:02 MMR 6 completed Richard Vivar [employer]EL[employer] null, [facility] 07/18/2024 13:12:02 DTP 6 completed Richard Vivar [employer] WE[employer] DEVEL[employer] null, [facility] 07/18/2024 13:12:02 OPV 5 completed Richard Vivar [employer]UPAL WEB DEVELOPER null, [facility] 07/18/2024 13:12:02 OPV 6 completed Richard Vivar [employer]UPAL WEB DEVELOPER null, [facility] 07/18/2024 13:12:02 MMR 6 completed Nellie Lubin, CLOTH TESTER QUALITY null, [facility] [employer] [facility] 04/23/2015 09:06:26 DTP 5 completed Richard Vivar DRUPAL WEB DEVELOPER null, [facility] 07/18/2024 13:12:02 OPV 5 completed Richard Vivar [employer]UPAL WEB DEVELOPER null, [facility] 07/18/2024 13:12:02 DTP 0 completed Richard Bergmanell, DRUPAL WEB DEVELOPER null, [facility] 07/18/2024 13:12:02 DTP 5 completed Richard Bergmanell, DRUPAL WEB DEVELOPER null, [facility] 07/18/2024 13:12:02 DTP 4 completed Richard Bergmanell, DRUPAL WEB DEVELOPER null, [facility] 07/18/2024 13:12:02 OPV 0 completed Richard Bergmanell, DRUPAL WEB DEVELOPER null, [facility] 07/18/2024 13:12:02 DT (pediatric) 7 completed Nellie Salice, CLOTH TESTER QUALITY null, [facility] 04/23/2015 09:06:26 Hep B, unspecified formulation 7 completed Nellie Salice, CLOTH TESTER QUALITY null, [facility] 04/23/2015 09:24:57 Hep B, unspecified formulation 6 completed Nellie Salice, CLOTH TESTER QUALITY null, [facility] 04/23/2015 09:24:57 Hep B, unspecified formulation 8 completed Nellie Salice, CLOTH TESTER QUALITY null, [facility] 04/23/2015 09:24:57 influenza, unspecified formulation 6 completed Not Available [facility] 07/20/2019 02:16:57 Influenza, MDCK, quadrivalent, preservative 0 completed Ricardo Horowitz [address] [place] [address], [address], [facility] 05/20/2020 16:28:40 influenza, unspecified formulation 8 completed Nellie Salice, CLOTH TESTER QUALITY null, [facility] 03/27/2018 16:32:48 COVID-19, mRNA, LNP-S, PF, 100 mcg/0.5mL dose or 50 mcg/0.25mL dose 1 completed Va Allenr, CLOTH TESTER QUALITY null, [facility] 09/18/2020 14:08:00 COVID-19, mRNA, LNP-S, PF, 100 mcg/0.5mL dose or 50 mcg/0.25mL dose 1 completed Va Hastings LPN null, [facility] [employer] 09/18/2020 14:09:33 COVID-19, mRNA, LNP-S, PF, 100 mcg/0.5mL dose or 50 mcg/0.25mL dose 1 completed Raquel Nugent, PERSONNEL ARBITRATOR[address], [address], [facility] [employer] [facility] 11/02/2021 10:53:45 Influenza, split virus, quadrivalent, preservative 1 completed Raquel Nugent, PERSONNEL ARBITRATOR[address], [address], [facility] [employer] [facility] 11/02/2021 10:54:22 influenza nasal, unspecified formulation 3 completed Raquel Nugent, [address], [address], [facility] [employer] [facility] 03/01/2023 14:14:28 MMR 6 completed Richard Vivar DRUPAL WEB DEVELOPER null, [facility] [employer] [facility] 07/18/2024 13:12:02 DTP 5 completed Richard Vivar DRUPAL WEB DEVELOPER null, [facility] [employer] [facility] 07/18/2024 13:12:02 DTP 0 completed Richard Vivar DRUPAL WEB DEVELOPER null, [facility] [employer] [facility] 07/18/2024 13:12:02 DTP 5 completed Richard Vivar DRUPAL WEB DEVELOPER null, [facility] [employer] [facility] 07/18/2024 13:12:02 DTP 6 completed Richard Vivar DRUPAL WEB DEVELOPER null, [facility] [employer] [facility] 07/18/2024 13:12:02 DTP 4 completed Richard Vivar DRUPAL WEB DEVELOPER null, [facility] [employer] [facility] 07/18/2024 13:12:02 OPV 5 completed Richard Vivar DRUPAL WEB DEVELOPER null, [facility] [employer] [facility] 07/18/2024 13:12:02 OPV 0 completed Richard Vivar DRUPAL WEB DEVELOPER null, [facility] [employer] [facility] 07/18/2024 13:12:02 OPV 04/01/198 5 completed Richard Vivar DRUPAL WEB DEVELOPER null, [facility] 07/18/2024 13:12:02 OPV 6 completed Richard Vivar DRUPAL WEB DEVELOPER null, [facility] 07/18/2024 13:12:02 OPV 4 completed Richard Vivar DRUPAL WEB DEVELOPER null, [facility] 07/18/2024 13:12:02 COVID-19, mRNA, LNP-S, bivalent, PF, 50 mcg/0.5 mL or 25mcg/0.25 mL dose 2 completed Richard Vivar DRUPAL WEB DEVELOPER null, [facility] 07/18/2024 13:12:16 Influenza, split virus, quadrivalent, PF 3 completed Richard Vivar DRUPAL WEB DEVELOPER null, [facility] 07/18/2024 13:12:16 Influenza, split virus, quadrivalent, PF 2 completed Richard Vivar DRUPAL WEB DEVELOPER null, [facility] 07/18/2024 13:12:16 Past Encounters Encounter ID Performer Location Encounter Start Date Encounter Closed Date Diagnosis/Indication Diagnosis SNOMED-CT Code Diagnosis ICD10 Code Diagnosis Note [id number] [address] [address] 10/24/2014 12:18:51 10/24/2014 13:35:24 Type 2 diabetes mellitus without complication 338381639 Disorder of stomach 87140712 Obesity 317669049 Diarrhea 71446841 [id number] [address] 11/26/2014 07:53:21 11/26/2014 08:49:59 Type 2 diabetes mellitus without complication 442117421 Backache 035374097 [id number] PANCHITO Felton [address] [address] 12/31/2014 07:42:27 12/31/2014 08:18:22 Backache 101485560 [id number] Monet Nugent [address] [address] 01/06/2015 08:00:43 01/06/2015 09:10:56 Backache 966709739 [id number] [address] [address] 01/21/2015 12:02:26 01/21/2015 12:59:09 Type 2 diabetes mellitus without complication 949028451 Diabetes mellitus 54360746 Backache 431306051 [id number] PANCHITO Felton [address] [address] 05/01/2015 11:56:17 05/01/2015 13:03:29 Type 2 diabetes mellitus 64732466 E11.319 [id number] Nellie Lubin LPN [address] [address] 06/30/2015 13:11:23 06/30/2015 13:58:58 Alcoholic fatty liver 69725848 K70.0 Backache w ith radiating pain 570765436 M54.9 [id number] PANCHITO Felton [address] [address] 07/07/2015 13:54:25 07/07/2015 15:34:56 Type 2 diabetes mellitus 09186673 E11.9 Diarrhea 09734454 R19.7 Hyperlipidemia 97597824 E78.5 Obesity 147922963 E66.9 Backache 889147334 M54.9 Diabetes mellitus 216474 09 E11.9 [id number] PANCHITO Felton [address] [address] 07/31/2015 07:59:38 07/31/2015 09:09:05 Diabetes mellitus 99021630 E11.319 Backache w ith radiating pain 038891263 M54.9 Hyperlipidemia 87296103 E78.5 Obesity 033369980 E66.9 [id number] PANCHITO Felton [address] [address] 08/31/2015 11:25:02 08/31/2015 12:16:01 Obesity 433416892 E66.9 Hyperlipidemia 71503247 E78.5 Diabetes mellitus 874894 09 E11.9 [id number] PANCHITO Felton [address] [address] 10/30/2015 11:42:38 10/30/2015 12:55:51 Depressive disorder 09278541 F32.9 [id number] Raquel Nugent PERSONNEL ARBITRATOR [address] [address] 12/11/2015 14:05:17 12/11/2015 15:02:51 Type 2 diabetes mellitus without complication 968668435 E11.9 Uncontroll ed type 2 diabetes mellitus 223364164 E11.65 Obesity 932888545 E66.9 [id number] Raquel Nugent PERSONNEL ARBITRATOR [address] [address] 03/11/2016 11:56:44 03/11/2016 12:34:40 Type 2 diabetes mellitus without complication 910236763 E11.9 will begin her pills. Will check on insurance coverage for the Victoza. Will discuss labs when available. encouraged diet and exercise [id number] PANCHITO Felton [address] [address] 06/14/2016 11:57:36 06/14/2016 12:49:16 Type 2 diabetes mellitus without complication 034573809 E11.9 Will have her take the Victoza and Januvia for now. Discussed going on a basal insulin and she is agreeable, but will wait until labs are back. Will have her work on weight loss--to that end she will make an appointmen t with Esperanza Cruz. The liquid diet is not the right one for Karuna. Esperanza will help her have energy and lose weight. Once she can lose weight, then she maybe able to have the lap belt adjusted. Loss of hair 017869054 L 65.9 Discussed her hair loss. She needs to stop pulling her hair so tight. Added vitamins. [id number] PANCHITO Felton [address] [address] 06/22/2016 11:08:23 06/22/2016 11:25:27 Abdominal pain 86266808 R10.9 Uncontroll ed type 2 diabetes mellitus 498832233 E11.65 Type 2 jolie betes mellitus without complication 207523178 E11.9 [id number] Raquel Nugent PERSONNEL ARBITRATOR [address] [address] 10/18/2016 12:13:36 10/18/2016 13:23:34 Vitamin D deficiency 55968986 E55.9 Will start her on high dose Vit D Type 2 jolie betes mellitus without complication 191153704 E11.9 Continue the metformin every other day with the probiotics . Discussed wanting to get her diabetes under tighter control Obesity 639773944 E66.9 meat and veggies for meals. and walk daily. Acute gastroenteritis 69 928784 K52.9 Labs repeated in about 1-2 weeks. Progress diet slowly. [id number] PANCHITO Felton [address] [address] 12/28/2016 14:03:06 12/28/2016 15:33:00 Pain in right lower limb 389637708 M79.604 Will check for tibia and/ or fibular fx. I am concerned in the amount of pain she is in. She has not made any progress in 5 days. With the amount of swelling she has, an occult fx may be present. Will send her to ortho. She is to be non-weight bearing. 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 She got a ride today. She will call us with updates. [id number] PANCHITO Felton [address] [address] 01/18/2017 11:47:06 01/18/2017 12:50:03 Type 2 diabetes mellitus without complication 944489226 E11.9 Sprain of ankle 04253150 S93.401A Continue to follow with ortho. She can dangle in a pool or tub. Lidocaine cream for discomfort . Labs today. Suggest she start taking her medication s again. [id number] Sonal Centeno [address] [address] 02/05/2018 11:42:33 02/05/2018 12:15:11 Urinary tract infectious disease 89068649 N39.0 [id number] Sheela Baxter [address] [address] 11/08/2018 13:46:00 11/08/2018 14:26:02 Low back pain in 6041387789 106 O26.899 Acute on chronic flare of back pain. States this is not the worst pain she's been in. She has signficant pain with lying down and sitting up, though she is able to ambulate and speak with staff without pain. Suspect her is worsening the pain. Will refer to [facility] for PT and possible injection. She will discuss with her OB safety with topical medication . Continue with heat and ambulation as this is helping with the pain. Work note given to park in front which is closer, and to avoid heavy lifting. She declines note to take time off work. Call if you need anything. She has an appt with OB next . Severe/wor sening pain go to the ED. Patient verbalized understand ing and agreement of plan, all questions answered. Lumbago with sciatica 20 5833354 M54.42 [id number] Tita Cordova MD [address] [address] 03/20/2019 09:00:44 03/20/2019 09:37:51 Diabetes mellitus 29068249 E11.9 Vitamin D deficiency 347 80417 E55.9 Anemia 283944623 D64.9 [id number] Delbert Buckley MD [address] [address] 04/02/2020 12:44:29 04/02/2020 13:48:09 Dysuria 82567257 R30.9 likely UTI-empiri c antibiotic s-send culture to confirm Contracept ion care management 314431708 Z30.9 refill nuvaring Diabetes mellitus 735106 09 E11.9 decent control-co ntinue metformin but increase to bid-f/u as booked in 2 months [id number] PANCHITO Weaver [address] [address] 05/20/2020 15:13:37 05/20/2020 19:46:49 Influenza vaccine needed 3229417696 106 Z23 Type 2 jolie betes mellitus without complication 646353225 E11.9 Patient is doing better with management Refill metformin and Victoza as she thinks her meds might be expiredCon tinue monitoring FBGs at homeEncour aged to have an eye exam yearlyDisc ussed checking feet daily for any open wounds, drying well between the toes after bathingCon tinue diet modificati ons of reduced carbs and sugarsCons ider trying to increase metformin again after on omeprazole for a couple of weeksRetur n to care in 3 months for DM and weight follow up Adult heal th examination 281459580 Z00.00 - encouraged regular exercise, 30 minutes 5x per week - encouraged regular dental and eye exams - encouraged monthly self breast exams - screening labs updated - vaccinatio ns up to date - f/u for next annual H&P in 1 year, f/u for lab check in 3 months Vitamin D deficiency 347 40206 E55.9 Hyperlipid emia screening 651414687 Z13.220 Screening for disorder 355594047 Z13.9 History of laparoscopic adjustable gastric banding 808737283 Z98.84 She is due for follow up with her surgeon, though she is hesitant to pursue any in office appointmen ts at this time due to the pandemicWi ll check vitamin levels and iron panel Gastro-eso phageal reflux disease with esophagitis 727234110 K21.00 We will also check a CBCPatient declined further work up of blood in her vomit- she agrees to let me know if she has any other episodes or if she becomes fatigued, paleAdvise d to seek emergency attention if she has palpitatio ns or chest pain, or has coffee ground emesis or dark tarry stools.Sta rt omeprazole dailyWhen patient is agreeable, I recommend a GI consult [id number] PANCHITO Weaver [facility] [address] [place] [address] 06/05/2020 12:34:36 06/05/2020 13:13:09 Acute urinary tract infection 886927971 N39.0 Recent infection within 1 month Start Cipro for 7 days May use pyridium for symptom relief Send urine for culture and micro to ensure sensitivit y Advised voiding after sex Type 2 jolie betes mellitus without complication 018057511 E11.9 Given her poor glucose control, we will treat this UTI with fluroquino lones per complicate d UTI guidelines Advised patient to seek emergency care if she develops a fever or hypotensio n She will notify me Monday if no improvemen t over the weekend Blood in urine 97512525 R31.9 Send sample for microscopy Will need another UA after UTI resolution to ensure hematuria resolves [id number] PANCHTIO Felton [address] [address] 11/02/2021 10:34:40 11/02/2021 12:18:58 Type 2 diabetes mellitus without complication 525818974 E11.9 -will get labs Adult [facility] th examination 049418159 Z00.00 This is a 36 year old female in moderately good health.- encouraged regular exercise, 30 minutes 5x per week- encouraged weight loss- encouraged regular dental and eye exams- screening labs updated- vaccinatio ns up to date-will up date COVID in the Fall- f/u for next annual H&P in 1 year Nausea and vomiting 1691999 R11.2 -in the middle of a work up with GI-she will contact them for a f/u appt [id number] PANCHITO Felton [address] [address] 03/01/2023 13:57:09 03/01/2023 14:49:30 Type 2 diabetes mellitus without complication [id number] E11.9 -will get labs today-she is doing much better since her gastric bypass-dis cussed in detail-enc ouraged her to stay with her dietencour aged 5 min of exercise daily [id number] JOLLY MCKINNEY DNP [address] [address] 11/17/2023 07:55:07 11/20/2023 14:01:42 Type 2 diabetes mellitus without complication [id number] E11.9 Obesity [id number] E66.9 Long-term current use of hormonal contraceptive [id number] 04929 Z79.3 [id number] JOLLY CMKINNEY DNP [address] [address] 07/18/2024 12:40:22 07/18/2024 14:47:04 General examination of patient [id number] Z00.01 Recommende d well-adin lin heart healthy diet such as Mediterran benita diet. Recommende d minimum 64 oz non-caffei nated fluid daily for adequate hydration. Recommende d 30 minutes of moderate intensity cardiovasc ular exercise, such as brisk walking, daily. Recommende d 7-8 hrs sleep per night, utilizing good sleep hygeine measures (cool,quie t, dark room. avoid screen time 1 hr prior to bedtime. avoid large meals within 3 hrs of bedtime. avoid pets on bed during sleep. use of warm baths, aromathera py, hardcopy books, audiobooks , white noise, calming music to induce sleep). Recommende d routine preventive dental and vision checkups. Recommende d catching up on pertinent vaccines. - labs- pt to schedule appt this summer for school-req uired testing ( needs Hep B titer, TB Quantifero n blood test, and Tetanus booster) Backache [id number] M54.9 refill Lumbar radiculopathy [id number] M54.16 chronic. pain elicited in right lumbar region with right leg lift [id number] JOLLY MCKINNEY DNP [address] [address] 07/25/2024 09:47:30 07/25/2024 10:36:16 Discussion [id number] Z71.2 Review of lab results.MC H slightly low at 26.3HDL low at 37- can increase with cardiovasc ular activity, healthy diet, and healthy intake of polyunsatu rated fatsAST 9 WNLA1C 5.3 WNLTSH 1.14 WNLPt has no questions. [id number] PANCHITO Alejandre [address] [address] 08/23/2024 09:48:24 08/23/2024 11:18:19 Excess skin of abdominal wall [id number] L98.7 Scheduled for abdominopl asty with Dr. Concepción Baxter on 09/17/2024. Preprocedu ral examination done [id number] 65048 Z01.818 Planned abdominopl asty as above.PMH significan t for T2DM, HLD.EKG: nsr, nl ekg.Patien t reports relatively good functional capacity and is considered at low risk for cardiovasc ular complicati on from this moderate risk procedure per revised cardiac risk index.I see no contraindi cation for proceeding with planned surgery at this time.Reque sted preoperati ve labs and CXR were ordered and are pending. Type 2 jolie betes mellitus without complication [id number] E11.9 Last HbA1C completed 07/18/24: 5.3.Curren t med regimen: Trulicity 3mg/0.5mL weekly, no s/e or concerns, continue.R epeat HbA1c today at surgeon's request. Hyperlipidemia [id number] E78.5 Lipids nl on last check on 07/18/24 - total 143, LDL 89, HLD 37, trigs 83.No medication s.Continue well balanced diet, regular physical activity. HIV screening [id number] Z11.4 Health Concerns Section Related Observation LastModified by Organization Detai ls LastModified Time None Recorded Concern Status LastModified by Organization Details LastModified Time None Recorded Advance Directives Directive N: Payers Encounter Date Sequence Insurance Name Policy Number Policy Britt Covered Member ID Britt Member ID Guarantor Name 03/01/2023 2 [place] [employer] Dayana Holder [id number] Dayana Tsang 03/01/2023 1 [facility] NET PLAN (MEDICAID HMO) [place] Dayana Holder [id number] Dayanamarquis Tsang 11/17/2023 2 [place] [employer] Dayana Holder [id number] Dayana Tsang 11/17/2023 1 [facility] Dayana Tsang [id number] Dayana Tsang 07/18/2024 1 [facility] Dayana Tsang [id number] Dayana Tsang 07/25/2024 1 [facility] Dayana Tsang [id number] Dayana Tsang 08/23/2024 1 [facility] Dayana Tsang [id number] Dayana Tsang Notes Date Note Type Note Provider Name and Address Organization Details Recorded Time 3 text/html Category 1:Reviewed prior external notes from unique sources: noneReview results of each test: noneOrdering of unique tests: see plan section of chartIndependent Historian: none Category 2:Independent interpretation of test performed by another provider none Category 3:Discussion of management or test interpretation with external provider or appropriate source none Medications reviewed: done Allergies reviewed: doneLast visit to office 11/02/2021. Had gastric bypass 05/2022 Diabetes focused exam:FS: does not doMed review: doneEye exam: not recentlyDental exam: not recentlySmoking HX: does not smokeImmunizations: UTD except for 2022 COVID, which is not available yetDiet: 3 meals-smallExercise: lately none, previously walking dailyLabs: 10/2021 with HgA1C 9.2, but pt reports recent one with 6.4-Dr. Luis at [facility] 02/09/2023 Vit D 20VuU0M today 6% PANCHITO Felton [address] [facility], [place], [address], [employer] 03/01/2023 14:42:37 4 text/html Pt consented to telephone visit in lieu of face to faceTransfer of care --DM. Not taking any med for this. States Unable to tolerate metformin. Declines other oral meds. Previously had taken Victoza successfully and wishes to restart. --Has been trying to lose weight. 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 Takes Topiramate and Phentermine for appetite suppression. Wishes to restart Victoza, as it suppresses appetite and could allow her to stop the topiramate. The topiramate interferes with her hormonal control. --Topiramate decreases effectiveness of hormonal control. Currently using vaginal ring. Discussed referring to gynecology for non-hormonal IUD placement. 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 1) start victoza 0.6mg sc qd x 1wk, then 1.2mg x 1 wk, then 1.8mg thereafter2) refer to gynecology ([facility]) for non-hormonal IUD placement3) she will fax recent labwork to office. JOLLY MCKINNEY, YURI [address] [facility], [place], [address], [place] [employer] 11/19/2023 11:27:38 5 text/html Adult health exam Pt presents for comprehensive physical Nutrition: good appeite, small meals due to bariatric surgHydration: at least 64 oz dailyElimination: problem with constipation AND diarrhea. r/t meds and gracie surgActivity: walking every day when ableSleep: improving, Screenings:-Cervical CA: last PAP does not recall. DUE-Breast CA: DUE for first mammo-Dental: yearly checkups-Vision:wears glasses. has eye exams every 2 years.-Hearing:-Tobac co: tjh-ewafuw-KCUG: 1-2 drinks per month-HTN: BP 110/70-HIV: declines testing-STI: declines testing-Dyslipidemia: last lipid panel abnormal in 2021-Obesity: s/p bariatric surgery., following with surg-Dep/Anx: situational mild depression. pt declines medication or counseling. Vaccines: will need for school in Fall 2024need Hep B titerneed tetanus boosterneed quantiferon blood test Problems:-right lumbar pain/right side radiculopathy/guardin g/spasms- chronic, has had previous PT and neurosurg consult in but non-surgical at that time. pt declines re-referral at this time (other priorities). spasms respond well to cyclobenzaprine JOLLY MCKINNEY DNP [address] [place] [address], [phone], [facility] [employer] 07/18/2024 16:20:12 5 text/html Pt consent obtained to defer to telephone visit. Pt confirms location within [facility]. Review of lab results.MCH slightly low at 26.3HDL low at 37AST 9 WNLA1C 5.3 WNLTSH 1.14 WNL JOLLY MCKINNEY DNP [address] [place] [address], [place], [address], [facility] [employer] 07/25/2024 10:26:53 5 text/html Patient presents for preop evaluation, scheduled [...] at rest or with exertion Lynn Valencia, PERSONNEL ARBITRATOR [address] [place], [address], [facility] 08/23/2024 11:18:01 OBGyn Episode No OBEpisode recorded.
== END 2024-09-03 16:01 | disposition home or self-care (01) ==
LOC: HO.XRAY 16:00
PROVIDERS: PCP Nurse Practitioner Family; Visit Provider Nurse Practitioner Family
DX: Z01.818 Encounter for other preprocedural examination (principal)
CPT/HCPCS: 71046

== ENCOUNTER → 2024-09-03 16:22 | Outpatient (BNV) | payer OTHER, SELFPAY | PROVIDERS: PCP Nurse Practitioner Family; Visit Provider Radiology Diagnostic Radiology | DX: R07.9 Chest pain, unspecified (principal) | CPT/HCPCS: 71046 ==